=== PATIENT | female | born 1950 | race African-American/Black ===

== ENCOUNTER 2020-10-17 15:28 | Inpatient (IN) | payer MEDICARE, OTHER ==
[~2020-10-17] VITALS: Ht 157.5 cm; Wt 60.3 kg
--- NOTE | 2020-10-17 15:30 | NUR ---
DR. RICK CALLED REGARDING THIS PATIENT. IF PATIENT WERE TO BE ADMITTED TO PRESENT TO [facility] THE ATTENDING AND ACCEPTING.
--- NOTE | 2020-10-17 16:05 | NUR ---
ANA FROM BOARD AND CARE TO ER BED 6. AAOX3. NOT IN RESP DISTRESS. BED BOUND. BROUGHT IN FOR L ABDOMINAL PAIN STARTED TODAY. DENIES NAUSEA NOR VOMMITING. PT NOTED WITH FREEMAN AND NEPHROSTOMY. MD WAS AT THE BEDSIDE FOR EVAL. ORDERS RECEIVED, NOTED AND CARRIED OUT.
[2020-10-17 16:09] LABS: BASOPHILS # (AUTO) 0.2 K/uL (0.0-0.2); BASOPHILS % (AUTO) 0.6 % (0.0-2.0); BILIRUBIN,URINE Negative (NEGATIVE); COLOR,URINE YELLOW (YELLOW); EOSINOPHILS % (AUTO) 0.3 % (0.0-6.0); HEMATOCRIT 27 % (33-45); HEMOGLOBIN 8.7 g/dL (11.5-14.8); LEUKOCYTE ESTERASE ,URINE Negative (NEGATIVE); LYMPHOCYTES # (AUTO) 2.7 K/uL (0.8-4.8); LYMPHOCYTES % (AUTO) 10.5 % (20.0-44.0); MEAN CORPUSCULAR HGB CONC 32 g/dl (31.0-36.0); MEAN CORPUSCULAR VOLUME 87 fL (82-100); MONOCYTES # (AUTO) 1.1 K/uL (0.1-1.30); MONOCYTES % (AUTO) 4.3 % (2.0-12.0); NEUTROPHILS % (AUTO) 84.3 % (43.0-81.0); NITRITE, URINE Negative (NEGATIVE); PLATELET COUNT (AUTO) 538 K/uL (150-450); PROTEIN,URINE >=300 mg/dl (NEGATIVE); RED BLOOD CELL COUNT(AUTO) 3.14 MIL/uL (4.0-5.2); UGLUCOSE Negative (NEGATIVE); UROBILINOGEN,URINE 0.2 EU/dL (0.2); WHITE BLOOD COUNT (AUTO) 26.1 K/uL (4.3-11.0)
[2020-10-17 16:35] LABS: ALANINE AMINOTRANSFERASE 8 U/L (12-78); ALBUMIN 1.6 g/dL (3.4-5.0); ALKALINE PHOSPHATASE 171 U/L (46-116); ASPARTATE AMINOTRANSFERASE 21 U/L (15-37); BILIRUBIN,DIRECT 0.2 mg/dL (0.0-0.2); BILIRUBIN,TOTAL 0.5 mg/dL (0.2-1.0); CARBON DIOXIDE 18 mmol/L (21-32); CHLORIDE 106 mmol/L (98-107); CREATININE 1.2 mg/dL (0.6-1.3); GLUCOSE 72 mg/dL (74-106); SODIUM SERUM 138 mmol/L (136-145); TOTAL PROTEIN, SERUM 7.6 g/dL (6.4-8.2); UREA NITROGEN, BLOOD 24 mg/dL (7-18)
[2020-10-17 16:37] LABS: POTASSIUM 1.9 mmol/L (3.5-5.1)
[2020-10-17 16:38] LABS: BACTERIA,URINE Few /HPF (None Seen); SQUAMOUS EPITHELIAL CELL,UR Few /HPF (None Seen); WBC,URINE 0-2 /HPF (0-3)
[2020-10-17] MEDS ORDERED: IV PREMIX 0.45% NS + KCL 1,000 ML IV ONE (17:00)
--- NOTE | 2020-10-17 17:12 | NUR ---
CALLED NURSING SUP FOR TELE BED.
[2020-10-17] MEDS ORDERED: PIPERACILLIN /TAZOBACTAM 3.375 G in IV D5W 50 ML IV ONE (18:30)
[2020-10-17] MEDS ORDERED: AZTREONAM 1 G in IV NS 0.9% 100 ML IV ONE (18:30)
[2020-10-17] MEDS ORDERED: Magnesium 1GM/D5W 100ML PREMIX PIGGYBACK IV ONE (18:30)
[2020-10-17] MEDS ORDERED: OLANZAPINE 10 MG VIAL IM ONE ×2 (18:33→19:00)
[2020-10-17] MEDS ORDERED: PIPERACILLIN /TAZOBACTAM 3.375 G VIAL IV ONE (19:07)
[2020-10-17] MEDS ORDERED: Magnesium 1GM/D5W 100ML PREMIX 200 ML IV ONE (19:07)
[2020-10-17] MEDS ORDERED: CEFEPIME 1 GM in IV D5W 50 ML IV ONE (19:30)
--- NOTE | 2020-10-17 19:31 | NUR ---
LALITA SANCHEZ/JG [phone]
--- NOTE | 2020-10-17 20:59 | NUR ---
REPORT GIVEN TO BURAK SOSA FOR MAY
[2020-10-17 21:45] VITALS: BP 150/87
--- NOTE | 2020-10-17 21:45 | NUR ---
RN NOTE RECEIVED PATIENT FROM ER VIA FELIPE ACCOMPANIED BY ASHLEY SUMNER AND 1 ER STAFF AND TRANSFERRED TO BED VIA 2 PERSON ASSIST. PT IS AO X 2, IN NO SIGN OF ACUTE DISTRESS, RESPIRATIONS EVEN AND UNLABORED, SATURATION AT 98% ON ROOM AIR. COMPREHENSIVE PHYSICAL ASSESSMENT AND PATIENT CARE DONE. NOTED SCAR AT ABDOMEN AND SACRUM, AND RASH AT THE LEFT HIP. NOTED IV LINE AT LFA 20G, PATENT AND FLUSHING WELL, NO S/S OF INFECTION OR INFILTRATION, WITH IV FLUID OF 1/2 NS + 20 MEQ KCL INFUSING AT 100 ML/HR. NOTED SEVERE WEAKNESS ON BUE AND BLE. SAFETY MEASURES AND ISOLATION PRECAUTION IN PLACE, CALL LIGHT WITHIN REACH OF PATIENT, BED ON LOWEST POSITION, SIDE RAILS UP. WILL CONTINUE MONITOR AND ASSESS THROUGHOUT THE SHIFT. WILL CARRY OUT MD ORDERS ACCORDINGLY. CONTAINER SHOP WELDER MADE AWARE.
--- NOTE | 2020-10-17 21:51 | NUR ---
PT TRANSPORTED TO UNIT ON [facility] WITH EMT AND RN AT BEDSIDE W. ACLS PROTOCOL. NAD NOTED DURING TRANSPORT.
[2020-10-17] MEDS ORDERED: ONDANSETRON HCL/PF 4 MG/2 ML VIAL IV PRN (22:00)
[2020-10-17] MEDS ORDERED: ACETAMINOPHEN 650 MG/SUPP.RECT RC PRN (22:00)
--- NOTE | 2020-10-17 22:30 | NUR ---
RN NOTE NOTED ORDER FOR D5 NS + 30 MEQ KCL, NURSING LINUX ADMINISTRATOR WAS ADVISED, STATED ONLY D5 1/2 NS + 20 KCL, OR 1/2 NS + [address] RICK WAS NOTIFIED, RECEIVED ORDER TO CHANGE D5 NS + 30 MEQ KCL TO 1/2 NS + 20 MEQ KCL, AND KCL PO 40 MEQ ONCE, REPEAT IN 1 HR, TOTAL [address] ARTS ROAD MANAGER AWARE.
[2020-10-17] MEDS: PANTOPRAZOLE 40 MG VIAL IV SCH (22:38)
[2020-10-17] MEDS: LORAZEPAM INJ 2 MG/ML VIAL IV PRN (22:59)
[2020-10-17] MEDS ORDERED: POTASSIUM CHLORIDE 20 MEQ POWDER PACKET PO ONE (23:30)
--- NOTE | 2020-10-17 23:45 | NUR ---
RN NOTE TELEPHONE CALL TO PATIENT'S SON MARQUISE HOPSON AT [phone], STATED HE IS GIVING HIS CONSENT FOR HIS MOTHER TO UNDERGO CT GUIDED ABDOMINAL ABSCESS DRAINAGE. HE ALSO SAID HE WANT HIS MOM FULL CODE. Addendum: 10/18/20 at 0552 by SHEILA NICE RN VITA SUMNER WITNESS.
[2020-10-18] VITALS: BP_SYST 148; BP_SYST 150; BP_DIAS 64; BP_DIAS 87
[2020-10-18] MEDS ORDERED: POTASSIUM CHLORIDE 20 MEQ POWDER PACKET PO ONE (00:30)
[2020-10-18] MEDS ORDERED: PIPERACILLIN /TAZOBACTAM 3.375 G VIAL IV ONE ×2 (00:52→06:18)
[2020-10-18] MEDS: PIPERACILLIN /TAZOBACTAM 3.375 G in IV D5W 50 ML IV SCH ×4 (00:53→17:32)
[2020-10-18] MEDS ORDERED: IV PREMIX 0.45% NS + KCL 1,000 ML IV ONE (03:58)
[2020-10-18 04:00] VITALS: BP 146/77
[2020-10-18] MEDS: IV PREMIX 0.45% NS + KCL 1,000 ML IV PRN (04:04)
--- NOTE | 2020-10-18 06:00 | NUR ---
RN NOTE PATIENT REFUSED PO KCL, OFFERED MULTIPLE TIMES, BUT STILL REFUSES, IV 1/2 NS + KCL [address] RICK NOTIFIED, NO NEW ORDERS RECEIVED, AND STATED "WAIT FOR AM LABS". EDUCATIONAL AIDE AWARE.
[2020-10-18 07:12] LABS: BASOPHILS # (AUTO) 0.1 K/uL (0.0-0.2); BASOPHILS % (AUTO) 0.4 % (0.0-2.0); EOSINOPHILS % (AUTO) 0.3 % (0.0-6.0); HEMATOCRIT 26 % (33-45); HEMOGLOBIN 8.4 g/dL (11.5-14.8); LYMPHOCYTES # (AUTO) 2.2 K/uL (0.8-4.8); LYMPHOCYTES % (AUTO) 8.5 % (20.0-44.0); MEAN CORPUSCULAR HGB CONC 32 g/dl (31.0-36.0); MEAN CORPUSCULAR VOLUME 88 fL (82-100); MONOCYTES # (AUTO) 1.5 K/uL (0.1-1.30); MONOCYTES % (AUTO) 5.9 % (2.0-12.0); NEUTROPHILS # (AUTO) 21.7 K/uL (1.8-8.9); NEUTROPHILS % (AUTO) 84.9 % (43.0-81.0); PLATELET COUNT (AUTO) 504 K/uL (150-450); WHITE BLOOD COUNT (AUTO) 25.5 K/uL (4.3-11.0)
[2020-10-18 07:42] LABS: CALCIUM, SERUM 8.4 mg/dL (8.5-10.1); CREATININE 1.3 mg/dL (0.6-1.3); MAGNESIUM 2.2 mg/dL (1.8-2.4)
[2020-10-18 07:44] LABS: POTASSIUM 2.1 mmol/L (3.5-5.1)
[2020-10-18 08:00] VITALS: BP 143/71
--- NOTE | 2020-10-18 08:00 | NUR ---
rn telephone triage note patent in bed alert with confusion ,on ra no sob noted lt forearm , hl intact and flushed well . on ivf as ordered on tele monitor, st hr 103, with Ashley cath to gravity with yellow color urine rt nephrostomy in place but bag is leaking dr murphy notified, bed in lowest and locked position ,will monitor , dr murphy notified that k 2.1 with order 60 meq kcl ivpb , will f\u
[2020-10-18] MEDS: POTASSIUM CL. PREMIX PERIPHER. 50 ML IV SCH ×6 (09:24→15:31)
--- NOTE | 2020-10-18 09:44 | NUR ---
SERVICE INSPECTOR NOTE ST AT BEDSIDE WILL START PUREE DIET
[2020-10-18] MEDS ORDERED: NA P133E RC (10:08)
[2020-10-18] MEDS ORDERED: ASCO500C17 PO (10:08)
[2020-10-18] MEDS ORDERED: FAMO20TA8 PO (10:08)
[2020-10-18] MEDS ORDERED: ACET325T53 PO (10:08)
[2020-10-18] MEDS ORDERED: MEGE400O4 PO (10:08)
[2020-10-18] MEDS ORDERED: ENOX40DI SQ (10:08)
[2020-10-18] MEDS ORDERED: THIA100T74 PO (10:08)
[2020-10-18] MEDS ORDERED: SENN-175 PO (10:08)
[2020-10-18] MEDS ORDERED: INSU100V42 (10:08)
[2020-10-18] MEDS ORDERED: AMIN887L PO (10:08)
[2020-10-18] MEDS ORDERED: CALC-1104 PO (10:08)
[2020-10-18] MEDS ORDERED: IPRA3AMP22 IH (10:08)
[2020-10-18] MEDS ORDERED: ONDA4TAB11 PO (10:08)
[2020-10-18] MEDS ORDERED: CHOL200013 PO (10:08)
[2020-10-18] MEDS ORDERED: LACT1CAP25 PO (10:08)
[2020-10-18] MEDS ORDERED: BISA10SU11 RC (10:08)
--- NOTE | 2020-10-18 10:15 | NUR ---
POOL FINISHER NOTE DR RICK NOTIFIED THAT PATIENT CANT TOLERATE KCL IVPB PATIENT STATED ITS TOO BURNING , ORDERED MID LINE INSERTION AND INSERT NG TUBE INSERTION, WILL F\U Addendum: 10/18/20 at 1121 by KEVIN BRADEN RN PER DR MERLINE HAYES TO D\C CT GUIDED ABDOMINAL ABSCESS DRAINAGE
[2020-10-18] MEDS: LORAZEPAM INJ 2 MG/ML VIAL IV PRN ×2 (10:48→20:10)
--- NOTE | 2020-10-18 10:48 | NUR ---
STUD DRIVER NOTE VERY RESTLESS YELLING OUT , ATIVAN 0.25 MG IVP GIVEN ORDERED BP 143/71 SATURATION 99,WILL MONITOR
[2020-10-18 12:00] VITALS: BP 156/79
--- NOTE | 2020-10-18 12:00 | NUR ---
telecom sales consultant note mid line in room, inserted rt upper arm mid line as ordered
[2020-10-18] MEDS ORDERED: Potassium Chloride 10 MEQ, LIDOCAINE HCL/PF 1% 1 ML in IV NS 0.9% 50 ML IV SCH (13:00)
[2020-10-18] MEDS ORDERED: POTASSIUM CHLORIDE 10 MEQ/50 ML PREMIXED IVPB FOR PERIPHERAL LINE IV ONE (13:00)
[2020-10-18] MEDS ORDERED: POTASSIUM CL. PREMIX PERIPHER. 50 ML IV SCH ×2 (15:00→20:00)
--- NOTE | 2020-10-18 15:00 | NUR ---
TELE R N NOTE DR LAURENT SALES SUPPORT ASSISTANT AT BEDSIDE AWARE THAT PATIENT HAS RT SIDE NEPHROSTOMY WITH PIG TAIL HAS YELLOW CLOUDY URINE , AND FREEMAN CATH WITH YELLOW COLOR URINE STATED CHECK IT OUT ABOUT NEPHROSTOMY , WILL F\U
[2020-10-18 16:00] VITALS: BP 136/86
[2020-10-18] MEDS: Potassium Chloride 10 MEQ, LIDOCAINE HCL/PF 1% 1 ML in IV D5W 50 ML IV SCH ×4 (16:36→20:10)
[2020-10-18] MEDS: ENSURE ENLIVE 237 ML LIQUID (VANILLA) PO SCH (16:38)
--- NOTE | 2020-10-18 16:38 | NUR ---
telecom field technician note per pharmacy unable to administered kcl ivp stated that will make one last bag # 6
--- NOTE | 2020-10-18 17:08 | NUR ---
telesales supervisor note n g tube inserted as ordered per dr murphy ok to have dietary consultor for n g tube feeding also cheat x ray done, spoke with radiologist ok to use n g tube, will cont to monitor
--- NOTE | 2020-10-18 18:35 | NUR ---
SUPERVISOR CUTTING AND BONING NOTE ALL NEEDS ATTENDED , KEEP CLEAN DRY ,CON KCL INFUSION VIA MID LINE , N G TUBE LT NARE IN PLACE, AWAITING FOR DIETARY TO N G TUBE FEEDING ORDER , DINNER ATE 25%, RT SIDE BACK WITH NEPHROSTOMY WITH 50 ML YELLOW COLOR CLOUDY DRAINAGE NOTED BED IN LOWEST AND LOCKED POSITION , FREEMAN CA6H TO GRAVITY , WITH YELLOW COLOR URINE, WILL CONT TO MONITOR
[2020-10-18 20:00] VITALS: BP 132/77
--- NOTE | 2020-10-18 20:00 | NUR ---
MS RN OPENING NOTES Patient is awake A&Ox1 -confused. Patient is yelling out "HELP!" for non-urgent things like tea. R nephrostomy pigtail draining yellow cloudy output. NGT to the nose intact. Awaiting feeding orders. Potassium IV infusing well to AKOSUA midline, denies pain or discomfort to site. Will continue to monitor.
--- NOTE | 2020-10-18 20:10 | NUR ---
Patient screaming for non-urgent needs, confused, sundowning behavior, agitated. Given PRN Ativan as per MD order.
[2020-10-18] MEDS ORDERED: MEROPENEM 500 MG in IV NS 0.9% 50 ML IV SCH ×2 (21:00→21:30)
[2020-10-18] MEDS ORDERED: VANCOMYCIN 1 GM in IV D5W 250ml IV ONE (21:30)
[2020-10-18] MEDS ORDERED: MEROPENEM 500 MG VIAL IV ONE (21:40)
[2020-10-18] MEDS ORDERED: VANCOMYCIN 1 GM VIAL ONE (21:41)
--- NOTE | 2020-10-18 22:00 | NUR ---
Intraabdominal/ R kidney body fluid specimen obtained from pigtail. In biohazard fridge.
[2020-10-18] MEDS: PANTOPRAZOLE 40 MG VIAL IV SCH (22:26)
[2020-10-18] MEDS ORDERED: FLUCONAZOLE IN NS 100 ML IV ONE (22:51)
[2020-10-18 22:56] LABS: CALCIUM, SERUM 8.1 mg/dL (8.5-10.1); CREATININE 1.4 mg/dL (0.6-1.3); POTASSIUM 3.8 mmol/L (3.5-5.1)
[2020-10-18] MEDS: FLUCONAZOLE IN NS 100 MG in PREMIX 1 EA IV SCH (23:45)
[2020-10-19] VITALS: BP 158/99
[2020-10-19] MEDS: IV PREMIX 0.45% NS + KCL 1,000 ML IV PRN (02:09)
[2020-10-19] MEDS: LORAZEPAM INJ 2 MG/ML VIAL IV PRN ×2 (02:10→11:22)
--- NOTE | 2020-10-19 02:10 | NUR ---
Patient yelling out, but when asked what is wrong she responds "huh, nothing is wrong" uneasiness/unable to fall asleep. PRN Ativan given as per MD order.
[2020-10-19 04:00] VITALS: BP 157/88
--- NOTE | 2020-10-19 04:13 | NUR ---
Lab called with negative PCR COVID results.
[2020-10-19] MEDS: ACETAMINOPHEN 325 MG TABLET PO PRN ×2 (04:24→21:54)
--- NOTE | 2020-10-19 04:37 | NUR ---
Patient c/o discomfort to R flank PRN tylneol given.
--- NOTE | 2020-10-19 06:44 | NUR ---
STAFFING ANALYST CLOSING NOTES Patient has been awake and anxious for most of shift. A&Ox1. Radha works for about an hour and a half at a time to calm patient down and allow her to sleep. Slept approx 3 hours. VSS. Patient has been sinus tachy 110-120 on the monitor. bangura drained 300cc yellow clear urine. Output to nephrostomy tube is yellow and cloudy with no foul odor. Offered snacks but pt refused. NGT still in place to L nare. Potassium went up to 3.8 at 2230 labs on 10/18. Tolerating IVF and ABX well.
[2020-10-19 07:13] LABS: CALCIUM, SERUM 8.2 mg/dL (8.5-10.1); CREATININE 1.5 mg/dL (0.6-1.3); MAGNESIUM 1.8 mg/dL (1.8-2.4); PHOSPHORUS 1.1 mg/dL (2.5-4.9)
[2020-10-19 07:41] LABS: BASOPHILS # (AUTO) 0.1 K/uL (0.0-0.2); BASOPHILS % (AUTO) 0.3 % (0.0-2.0); EOSINOPHILS % (AUTO) 0.3 % (0.0-6.0); HEMATOCRIT 24 % (33-45); HEMOGLOBIN 7.4 g/dL (11.5-14.8); LYMPHOCYTES # (AUTO) 1.5 K/uL (0.8-4.8); LYMPHOCYTES % (AUTO) 4.3 % (20.0-44.0); MEAN CORPUSCULAR HGB CONC 31 g/dl (31.0-36.0); MEAN CORPUSCULAR VOLUME 91 fL (82-100); MONOCYTES # (AUTO) 1.7 K/uL (0.1-1.30); MONOCYTES % (AUTO) 4.8 % (2.0-12.0); NEUTROPHILS # (AUTO) 31.9 K/uL (1.8-8.9); NEUTROPHILS % (AUTO) 90.3 % (43.0-81.0); PLATELET COUNT (AUTO) 427 K/uL (150-450); RED BLOOD CELL COUNT(AUTO) 2.63 MIL/uL (4.0-5.2)
[2020-10-19 08:01] LABS: WHITE BLOOD COUNT (AUTO) 35.3 K/uL (4.3-11.0)
--- NOTE | 2020-10-19 08:05 | NUR ---
RN NOTES MD NOTIFIED OF WBC COUNT LOW AT 35.3 AWAITING ANY NEW ORDERS, NG - TUBE INTACT, F/C INTACT YELLOW CLEAR URINE NO FOUL ODOR NOTED AT THIS TIME, NEPROSTOMY TUBE INTACT DRAINING PROPERLY, PT SCREAMING YELLING CRYING OUT FOR HELP CONFUSED, HELPED TO CALM DOWN AND HOLD HAND FOR REASSURANCE , BED LOW TO FLOOR , WHEELS LOCKED AND ALL SAFETY MEASURES IN PLACE AT THIS TIME, CALL LIGHT IN REACH.
[2020-10-19] MEDS: ENSURE ENLIVE 237 ML LIQUID (VANILLA) PO SCH ×3 (08:08→17:00)
[2020-10-19 09:00] LABS: BAND % (MANUAL) 2 % (0.0-5.0); LYMPHOCYTES % (MANUAL) 2 % (16-48); MONOCYTES % (MANUAL) 7 % (0-11.0); NEUTROPHILS % (MANUAL) 89 (42-76)
[2020-10-19] MEDS ORDERED: NEUTRA PHOS 1 POWD.PACKET PO ONE (09:00)
[2020-10-19 09:39] VITALS: BP 122/74
[2020-10-19] MEDS: MEROPENEM 1 G in IV NS 0.9% 100 ML IV SCH ×2 (09:48→21:03)
[2020-10-19 13:06] VITALS: BP 132/99
[2020-10-19] MEDS ORDERED: ONDANSETRON 4 MG TAB.RAPDIS PO PRN (13:30)
[2020-10-19] MEDS ORDERED: BISACODYL SUPP (10 MG) 10 MG/SUPP.RECT SUPP.RECT RC PRN (13:30)
[2020-10-19] MEDS ORDERED: NA PHOS,M-B/NA PHOS,DI-BA 1 EA ENEMA RC PRN (13:30)
[2020-10-19] MEDS ORDERED: Sodium Phosphate 30 MMOL in IV NS 0.9% 250 ML IV SCH ×2 (13:30→16:30)
[2020-10-19] MEDS ORDERED: IV D5/0.45 NACL 1,000 ML IV ONE (16:00)
[2020-10-19] MEDS: FAMOTIDINE (20 MG) 20 MG TABLET PO SCH (16:27)
[2020-10-19] MEDS: MEGESTROL ACETATE SUSP 400 MG/10 ML UDC PO SCH (16:29)
[2020-10-19] MEDS: ENOXAPARIN SODIUM 40 MG/0.4 ML DISP.SYRIN SQ SCH (16:45)
[2020-10-19] MEDS: VANCOMYCIN 1 GM in IV D5W 250 ML IV SCH (16:58)
[2020-10-19] MEDS ORDERED: Sodium Bicarbonate 100 MEQ in IV D5 / 0.2% NACL 1,000 ML IV ONE (17:00)
[2020-10-19] MEDS: Magnesium 1GM/D5W 100ML PREMIX 100 ML IV SCH ×2 (17:15→17:17)
[2020-10-19 17:24] VITALS: BP 124/68
--- NOTE | 2020-10-19 19:15 | NUR ---
RN NOTES: RECEIVED AWAKE ON BED, SHE IS SHOUTING AND WHEN YOU TALK TO HER SHE WILL TALK IN NORMAL TONE,A/OX1 TO SELF ONLY, SHE RESPOND WHEN HER NAME WAS CALLED, ON TELE MONITOR ST-110-120, ON ROOM AIR SPO2-100%, WITH NGT ON THE LEFT NARES,ON PUREE DIET, IV ONGOING , AKOSUA MIDLINE, INTACT AND PATENT, SHE HAS RIGHT ABDOMEN NEPHROSTOMY TUBE, FREEMAN CATH IN SITE, ORIENTED TO UNIT AND STAFF, NO SIGN OF SOB OR RESPIRATORY DISTRESS. -FALL,SAFETY AND ASPIRATION PRECAUTION OBSERVED.
[2020-10-19 20:00] VITALS: BP 128/86
--- NOTE | 2020-10-19 20:30 | NUR ---
RN NOTES: -FAMILY VISITED AT BED SIDE, SHE WAS ABLE TO RECOGNIZE THEM. -REPOSITIONING DONE. -TRYING TO COMMUNICATE EVEN IN MUMBLING WORDS.
[2020-10-19] MEDS: FLUCONAZOLE IN NS 100 MG in PREMIX 1 EA IV SCH (21:03)
[2020-10-19] MEDS: PANTOPRAZOLE 40 MG VIAL IV SCH (21:53)
[2020-10-19] MEDS: SENNOSIDES 8.6 MG TABLET PO SCH (21:54)
--- NOTE | 2020-10-19 22:17 | NUR ---
RN NOTES: SHOUTING IN BETWEEN SHE HAS ON AND OFF PAIN, REQUEST FOR PAIN MEDICAITON, TYLENOL PRN FOR PAIN GIVEN, CRUSHED WITH APPLE SAUCE, TOLERATED.ASPIRATION PRECAUTION OBSERVED.
[2020-10-20] VITALS (10 sets, daily range): BP systolic 116–152; BP diastolic 57–88
--- NOTE | 2020-10-20 00:16 | NUR ---
RN NOTES: -- KEPT ON CLOSE WATCH, CHECK AT FREQUENT INTERVALS, SHE WILL SHOUT AND ONCE RN WILL COME,SHE WILL AND ASSESS HER IF SHE IS IN PAIN SHE SAID "NO", SHE WILL TRY TO VERBALIZED SHE WANT HER ARM OR FOOT MOVE AND HER ARM ELEVATED,SHE CAN COMMUNICATE IN SIMPLE WORDS. --NEEDS ATTENDED.
--- NOTE | 2020-10-20 00:18 | NUR ---
RN NOTES; -SHE WILL CLOSE HER EYES FOR FEW MINUTES THEN SHE WILL BE AWAKE AGAIN AND LOOK OR THE NURSE, SHE WILL CALL, NEEDS ATTENDED AND CHECK FREQUENTLY, SPO2-1005 NO RESPIRATORY DISTRESS NOTED, ABLE TO VERBALIZE HER NEEDS.
[2020-10-20] MEDS: LORAZEPAM INJ 2 MG/ML VIAL IV PRN ×3 (00:54→15:17)
--- NOTE | 2020-10-20 01:03 | NUR ---
RN NOTES: -AWAKE MOST OF THE TIME, NEEDS ATTENDED, REPOSITIONED. -STILL SHOUTING AND SCREAMING FOR NURSE, PRN FOR AGITATION ATIVAN GIVEN, BP-129/77 NM-114 SPO2-100%. -FALL AND SAFETY PRECAUTION OBSERVED, KEPT JULIO LIGHT WITHIN EASY REACH, ON CLOSE WATCH AT FREQUENT INTERVALS.
--- NOTE | 2020-10-20 03:40 | NUR ---
RN NOTES: AFTER ATIVAN SHE ONLY KEEP QUIET FOR FEW MINUTES THEN SHE WILL SHOUT AGAIN, NEEDS ATTENDED. -MORNING CARE DONE, SPONGE BATH RENDERED, AFTER CLEANING SHE CLOSE HER EYES FOR FEW MINUTES, THEN SHE STARTED SHOUTING AGAIN. -WHEN ASKED IF SHE IS IN PAIN, SHE SAID "No", THE MOMENT STAFF STEP OUT OF HER ROOM SHE WILL SHOUT "HELP HELP, HELP"AND WHEN STAFF COMES IN SHE WILL SAY SHE WANTS TO GET UP, EXPLAINED TO HER ITS STILL NIGHT TIME, ITS TIME TO REST AND SLEEP. -CHECK AT FREQUENT INTERVALS.
[2020-10-20] MEDS: ACETAMINOPHEN 325 MG TABLET PO PRN ×2 (04:19→09:42)
--- NOTE | 2020-10-20 04:30 | NUR ---
RN NOTES: -SHE VERBALIZED SHE HAS PAIN, ORAL PAIN MEDICATION GIVEN WITH APPLE SAUCE. TAKEN AND SWALLOWED, NEEDS ATTENDED. -NON PHARMACOLOGIC INTERVENTION RENDERED.
[2020-10-20 06:55] LABS: BASOPHILS # (AUTO) 0.1 K/uL (0.0-0.2); BASOPHILS % (AUTO) 0.2 % (0.0-2.0); HEMATOCRIT 23 % (33-45); LYMPHOCYTES # (AUTO) 2.1 K/uL (0.8-4.8); LYMPHOCYTES % (AUTO) 5.1 % (20.0-44.0); MEAN CORPUSCULAR HGB CONC 31 g/dl (31.0-36.0); MEAN CORPUSCULAR VOLUME 88 fL (82-100); MONOCYTES # (AUTO) 2.5 K/uL (0.1-1.30); MONOCYTES % (AUTO) 6.1 % (2.0-12.0); NEUTROPHILS % (AUTO) 88.6 % (43.0-81.0); PLATELET COUNT (AUTO) 445 K/uL (150-450); RED BLOOD CELL COUNT(AUTO) 2.61 MIL/uL (4.0-5.2)
[2020-10-20 06:57] LABS: CALCIUM, SERUM 8.2 mg/dL (8.5-10.1); CREATININE 1.5 mg/dL (0.6-1.3); MAGNESIUM 1.9 mg/dL (1.8-2.4); PHOSPHORUS 1.6 mg/dL (2.5-4.9); POTASSIUM 2.9 mmol/L (3.5-5.1)
--- NOTE | 2020-10-20 06:57 | NUR ---
RN NOTES: CALLS AND NEEDS ATTENDED, SHE WILL CLOSE HER EYES FOR FEW MINUTES THEN AWAKE AGAIN. KEPT ON CLOSE WATCH, NO PERIODS OF RESTLESSNESS, NO PERIODS OF TRYING TO PULL OUT HER TUBING, SHE ONLY SHOUT AND CALL FOR HELP. -FOR RD CONSULT THIS MORNING. -ENDORSED FOR CONTINUITY OF CARE.
[2020-10-20 07:19] LABS: WHITE BLOOD COUNT (AUTO) 40.6 K/uL (4.3-11.0)
[2020-10-20] MEDS: POTASSIUM PHOSPHATE MM 7.5 MMOL in IV NS 0.9% 100 ML IV SCH ×2 (07:39→11:01)
--- NOTE | 2020-10-20 08:00 | NUR ---
RN OPENING NOTE PT AWAKE IN BED. A/O X1 AND ANXIETY PRESENT. NO COMPLAINT OF PAIN OR NAUSEA. CURRENTLY ON RA WITH NO SOB OR RESPIRATORY DISTRESS PRESENT. ON HORSERADISH MAKER. ON BEDREST WITH DIAPER AND F/C PRESENT. F/C DRAINING WELL. FALL RISK WITH BED ALARM ON. ON PUREE DIETY. AKOSUA MIDLINE PRESENT AND FLUSHES WELL. SKIN PROBLEMS PRESENT AND WOUND CARE ORDERED. L WRIST EDEMA PRESENT. LABS AND ORDERS REVIEWED. SAFETY MEASURES IN PLACE. SIDE RAILS RAISED. BED LOWERED. CALL LIGHT WITHIN REACH. WILL CONTINUE TO MONITOR.
[2020-10-20] MEDS: FAMOTIDINE (20 MG) 20 MG TABLET PO SCH ×2 (08:08→17:26)
[2020-10-20] MEDS: MEGESTROL ACETATE SUSP 400 MG/10 ML UDC PO SCH ×2 (08:08→17:26)
[2020-10-20] MEDS: MEROPENEM 1 G in IV NS 0.9% 100 ML IV SCH ×2 (08:08→21:27)
[2020-10-20] MEDS: THIAMINE HCL 100 MG TABLET PO SCH (08:08)
[2020-10-20] MEDS: ENSURE ENLIVE 237 ML LIQUID (VANILLA) PO SCH ×3 (08:09→17:26)
[2020-10-20] MEDS: ENOXAPARIN SODIUM 40 MG/0.4 ML DISP.SYRIN SQ SCH (08:21)
[2020-10-20] MEDS: VANCOMYCIN 1 GM in IV D5W 250 ML IV SCH ×3 (10:00→15:28)
[2020-10-20] MEDS ORDERED: PANTOPRAZOLE 40 MG TABLET.DR PO SCH (10:00)
[2020-10-20 11:04] LABS: LYMPHOCYTES % (MANUAL) 4 % (16-48); MONOCYTES % (MANUAL) 4 % (0-11.0); NEUTROPHILS % (MANUAL) 92 (42-76)
[2020-10-20] MEDS: METRONIDAZOLE 500MG/ NS 100ML 500 MG in PREMIX 1 EA IV SCH ×2 (14:23→21:09)
--- NOTE | 2020-10-20 18:57 | NUR ---
RN CLOSING NOTE PT AWAKE IN BED. A/O X1 AND ANXIETY PRESENT. NO COMPLAINT OF PAIN OR NAUSEA. CURRENTLY ON RA WITH NO SOB OR RESPIRATORY DISTRESS PRESENT. ON PERCH MACHINE INSPECTOR. ON BEDREST WITH DIAPER AND F/C PRESENT. F/C DRAINING WELL. FALL RISK WITH BED ALARM ON. ON PUREE DIET. AKOSUA MIDLINE PRESENT AND FLUSHES WELL. SKIN PROBLEMS PRESENT AND WOUND CARE ORDERED. L WRIST EDEMA PRESENT. BLE EDEMA PRESENT. LABS AND ORDERS REVIEWED. ROUTINE MEDS GIVEN. SAFETY MEASURES IN PLACE. SIDE RAILS RAISED. BED LOWERED. CALL LIGHT WITHIN REACH. REPORT TO BE GIVEN TO NIGHT NURSE FOR MAY.
--- NOTE | 2020-10-20 19:45 | NUR ---
YARD SUPERVISOR COTTON GIN NOTES 1 UNIT PRBC TRANSFUSING WELL. VSS. AFEBRILE. NO S/SX OF TRANSFUSION RXN NOTED. WILL CONTINUE TO MONITOR.
[2020-10-20] MEDS: MORPHINE SULFATE INJ 2 MG/ML DISP.SYRIN IV PRN (20:19)
[2020-10-20] MEDS: FLUCONAZOLE IN NS 100 MG in PREMIX 1 EA IV SCH (20:19)
[2020-10-20] MEDS: PANTOPRAZOLE 40 MG TABLET.DR PO SCH (21:29)
[2020-10-20] MEDS: SENNOSIDES 8.6 MG TABLET PO SCH (21:29)
--- NOTE | 2020-10-20 22:00 | NUR ---
DIRECT SUPPORT PROFESSIONAL NOTES 1 UNIT PRBC COMPLETED. VSS. AFEBRILE. NO S/SX OF TRANSFUSION RXN NOTED. WILL CONTINUE TO MONITOR.
[2020-10-21] VITALS: BP 100/67
[2020-10-21] MEDS: MORPHINE SULFATE INJ 2 MG/ML DISP.SYRIN IV PRN (00:51)
[2020-10-21 04:00] VITALS: BP 121/67
[2020-10-21] MEDS: METRONIDAZOLE 500MG/ NS 100ML 500 MG in PREMIX 1 EA IV SCH ×3 (05:18→21:17)
--- NOTE | 2020-10-21 06:26 | NUR ---
REFINERY SUPERINTENDENT NOTES AWAKE & RESPONSIVE. NOT IN ANY DISTRESS. NO SOB NOTED. DENIES ANY PAIN OR DISCOMFORT AT THIS TIME. ON TELE ST @ 113 WITH ML PATENT & INTACT. AM CARE DONE. MONITORED ACCORDINGLY. CALL LIGHT WITHIN REACH. BED IN LOWEST POSITION. SR UP X 3 WITH BED ALARM ON FOR SAFETY. WILL ENDORSE TO NEXT SHIFT.
[2020-10-21 06:41] LABS: EOSINOPHILS % (AUTO) 0.1 % (0.0-6.0); HEMATOCRIT 26 % (33-45); HEMOGLOBIN 8.7 g/dL (11.5-14.8); LYMPHOCYTES % (AUTO) 6.4 % (20.0-44.0); MEAN CORPUSCULAR HGB CONC 33 g/dl (31.0-36.0); MEAN CORPUSCULAR VOLUME 87 fL (82-100); MONOCYTES % (AUTO) 6.3 % (2.0-12.0); NEUTROPHILS # (AUTO) 27.4 K/uL (1.8-8.9); NEUTROPHILS % (AUTO) 87.2 % (43.0-81.0); PLATELET COUNT (AUTO) 363 K/uL (150-450); RED BLOOD CELL COUNT(AUTO) 3.03 MIL/uL (4.0-5.2)
[2020-10-21 06:53] LABS: WHITE BLOOD COUNT (AUTO) 31.5 K/uL (4.3-11.0)
[2020-10-21 06:59] LABS: BILIRUBIN,TOTAL 1.2 mg/dL (0.2-1.0); CALCIUM, SERUM 8.1 mg/dL (8.5-10.1); CREATININE 1.6 mg/dL (0.6-1.3); MAGNESIUM 1.7 mg/dL (1.8-2.4); PHOSPHORUS 2.8 mg/dL (2.5-4.9); TOTAL PROTEIN, SERUM 6.4 g/dL (6.4-8.2)
--- NOTE | 2020-10-21 07:30 | NUR ---
NATURAL RESOURCES FACULTY MEMBER NOTE , AWAKE WITH CONFUSION, AGITATED BY YELLING OUT , ON TELE MONITOR ST 112, AT THIS TIME, ON RA N O SOB NOTED AT THIS TIME, WITH NG TUBE LT NARE IN PLACE , KEEP HOB ELEVATED AT ALL TIME, RT NEPHROSTOMY IN PLACE NO DRAIN NOTED, RT UPPER ARM MID LINE IN PLACE, N C\O PAIN AT THIS TIME, BED IN LOWEST AND LOCKED POSITION , WILL CONT TO MONITOR
[2020-10-21 08:00] VITALS: BP 122/72
[2020-10-21 08:24] LABS: ALBUMIN 1.3 g/dL (3.4-5.0); POTASSIUM 2.4 mmol/L (3.5-5.1)
[2020-10-21] MEDS: MEGESTROL ACETATE SUSP 400 MG/10 ML UDC PO SCH ×2 (08:26→16:20)
[2020-10-21] MEDS: FAMOTIDINE (20 MG) 20 MG TABLET PO SCH ×2 (08:26→16:20)
[2020-10-21] MEDS: THIAMINE HCL 100 MG TABLET PO SCH (08:26)
[2020-10-21] MEDS: MEROPENEM 1 G in IV NS 0.9% 100 ML IV SCH ×2 (08:26→22:17)
[2020-10-21] MEDS: ENSURE ENLIVE 237 ML LIQUID (VANILLA) PO SCH ×3 (08:27→16:19)
--- NOTE | 2020-10-21 09:00 | NUR ---
CIGARETTE FILTER INSPECTOR NOTE CHECKED PLACEMENT N G TUBE BY AUSCULTATION OF AIR
--- NOTE | 2020-10-21 09:07 | NUR ---
telephone order supervisor note called to dr murphy k 2.4 with order kcl 40meq x 3 doses will f\u
[2020-10-21] MEDS: POTASSIUM CHLORIDE 20 MEQ POWDER PACKET GT SCH ×3 (09:22→12:47)
[2020-10-21] MEDS: LORAZEPAM INJ 2 MG/ML VIAL IV PRN ×2 (09:58→21:12)
--- NOTE | 2020-10-21 10:08 | NUR ---
COOKY PACKER NOTE VERY AGITATED YELLING OUT , ATIVAN IVP PRN GIVEN BP 144/53 SATURATION 96%, WILL MONITOR
--- NOTE | 2020-10-21 10:13 | NUR ---
teletype adjuster note unable to give ensure patient refusing and start to cough
--- NOTE | 2020-10-21 10:41 | NUR ---
telegraphic typewriter operator note made a bm. keep clean dry, turn reposition , all needs attended
[2020-10-21 10:47] LABS: BAND % (MANUAL) 1 % (0.0-5.0); LYMPHOCYTES % (MANUAL) 6 % (16-48); MONOCYTES % (MANUAL) 1 % (0-11.0); NEUTROPHILS % (MANUAL) 92 (42-76)
--- NOTE | 2020-10-21 11:04 | NUR ---
TEMPLATE WORKER NOTE SEEN BY DR RICK NOTIFIED THAT PER DIETARY OK TO START N G TUBE JEVITY AT 20 ML PER HOUR ORDERED OK TO START FEEDING ALSO AWARE THAT BUN 25 CREAT 1.6 WBC 31.5 Addendum: 10/21/20 at 1256 by KEVIN BRADEN RN CONSENT FOR MRCP OBTAINED SON AT BEDSIDE
[2020-10-21] MEDS: JEVITY 1.2 CAL 1,000 ML BOTTLE GT PRN (11:49)
[2020-10-21 12:00] VITALS: BP 113/54
[2020-10-21 15:17] LABS: CALCIUM, SERUM 8.4 mg/dL (8.5-10.1); CREATININE 1.6 mg/dL (0.6-1.3); POTASSIUM 3.9 mmol/L (3.5-5.1)
--- NOTE | 2020-10-21 15:27 | NUR ---
ROAD SIGN INSTALLER NOTE UA COLLECTED ORDERED
--- NOTE | 2020-10-21 15:34 | NUR ---
tele n note called to son notified that ct guided us drainage abscess ok to have procedure
[2020-10-21] MEDS: VANCOMYCIN 1 GM in IV D5W 250 ML IV SCH (15:38)
--- NOTE | 2020-10-21 15:39 | NUR ---
director telehealth note per pharmacy ok to hold vancomycin level 27 at this time will f\u
[2020-10-21 16:00] VITALS: BP 91/67
[2020-10-21] MEDS: ACETAMINOPHEN 325 MG TABLET PO PRN (16:37)
--- NOTE | 2020-10-21 16:41 | NUR ---
DRILLING FOREMAN NOTE FAMILY AT BEDSIDE ,C\O ABDOMINAL PAIN TYLENOL ANG TUBE GIVEN , ALL NEEDS ATTENDED WILL MONITOR
--- NOTE | 2020-10-21 17:00 | NUR ---
TIN ROOFER NOTE SPOKE WITH SON , TELEPHONE CONSENT OBTAINED FOR US GUIDED DRAINAGE ABSCESS
[2020-10-21 17:11] LABS: CHLORIDE,URINE RANDOM 24 mmol/L (55-125); POTASSIUM RNDM,URINE 30 mmol/L (25-125); URINE SODIUM, RANDOM 9 mmol/l (40-220)
--- NOTE | 2020-10-21 18:30 | NUR ---
STOREHOUSE CLERK NOTE PATIENT IN BED AWAKE, WITH CONFUSION MOST OF TIME NONCOMPLIANT WITH CARE AND AGITATED , ON N G TUBE FEEDING AT LT NARE IN PLACE ,ON FEEDING KEEP HOB ELEVATED AT ALL TIME , NO SOB NOTED AT THIS TIME, WITH FREEMAN CATH TO GRAVITY AND RT SIDE NEPHROSTOMY IN PLACE , ALL NEEDS ATTENDED ,WILL MONITOR CLOSELY
[2020-10-21 20:00] VITALS: BP 108/60
--- NOTE | 2020-10-21 20:00 | NUR ---
RECEIVEDPT IN BED A/A/O X1, PT ON RA SATING ABOVE 95%, UNLABORED BREATHING. PT ON TELE MONITOR SHOWING SR IN 80S.
[2020-10-21] MEDS: FLUCONAZOLE IN NS 100 MG in PREMIX 1 EA IV SCH (20:16)
[2020-10-21] MEDS: SENNOSIDES 8.6 MG TABLET PO SCH (22:21)
[2020-10-21] MEDS: PANTOPRAZOLE 40 MG TABLET.DR PO SCH (22:21)
[2020-10-22] VITALS: BP 97/71
[2020-10-22 04:00] VITALS: BP 147/71
[2020-10-22] MEDS: METRONIDAZOLE 500MG/ NS 100ML 500 MG in PREMIX 1 EA IV SCH ×3 (05:27→21:29)
[2020-10-22 06:29] LABS: BASOPHILS # (AUTO) 0.1 K/uL (0.0-0.2); BASOPHILS % (AUTO) 0.3 % (0.0-2.0); EOSINOPHILS % (AUTO) 0.2 % (0.0-6.0); HEMATOCRIT 27 % (33-45); LYMPHOCYTES # (AUTO) 1.7 K/uL (0.8-4.8); LYMPHOCYTES % (AUTO) 6.8 % (20.0-44.0); MEAN CORPUSCULAR HGB CONC 33 g/dl (31.0-36.0); MEAN CORPUSCULAR VOLUME 87 fL (82-100); MONOCYTES # (AUTO) 1.6 K/uL (0.1-1.30); MONOCYTES % (AUTO) 6.4 % (2.0-12.0); NEUTROPHILS # (AUTO) 21.3 K/uL (1.8-8.9); NEUTROPHILS % (AUTO) 86.3 % (43.0-81.0); PLATELET COUNT (AUTO) 393 K/uL (150-450); RED BLOOD CELL COUNT(AUTO) 3.11 MIL/uL (4.0-5.2); WHITE BLOOD COUNT (AUTO) 24.7 K/uL (4.3-11.0)
[2020-10-22 07:15] LABS: CALCIUM, SERUM 8.4 mg/dL (8.5-10.1); CREATININE 1.5 mg/dL (0.6-1.3); POTASSIUM 3.6 mmol/L (3.5-5.1)
--- NOTE | 2020-10-22 07:36 | NUR ---
RN NOTE REPORT GIVEN TO ONCOMING SHIFT FOR MAY.
--- NOTE | 2020-10-22 07:42 | NUR ---
MS RN OPENING NOTE PATIENT IS IN BED RESTING. PATIENT IS IN NO ACUTE DISTRESS. PATIENT IS ON ROOM AIR SATURATING WELL. PATIENT HAS NG-TUBE IN PLACE. PATIENT IS A FALL RISK. SAFETY PRECAUTIONS ARE ON, BED IS LOCKED IN THE LOWEST POSITION WITH SIDE RAILS UP. CALL LIGHT WITHIN REACH, CONTINUE TO MONITOR CLOSELY.
[2020-10-22 08:00] VITALS: BP 113/62
[2020-10-22] MEDS ORDERED: VANCOMYCIN HCL 0.75 GM in IV D5W 250 ML IV SCH (08:00)
[2020-10-22] MEDS: ENSURE ENLIVE 237 ML LIQUID (VANILLA) PO SCH ×3 (09:00→17:00)
--- NOTE | 2020-10-22 09:25 | NUR ---
MS RN NOTE PATIENT IS UNABLE TO LAY FLAT, UNABLE TO PERFORM MRCP PROCEDURE, WILL NOTIFY DR. MERLINE TATUM
[2020-10-22] MEDS: THIAMINE HCL 100 MG TABLET PO SCH (09:48)
[2020-10-22] MEDS: MEGESTROL ACETATE SUSP 400 MG/10 ML UDC PO SCH ×2 (09:48→17:14)
[2020-10-22] MEDS: FAMOTIDINE (20 MG) 20 MG TABLET PO SCH ×2 (09:48→17:14)
[2020-10-22] MEDS: MEROPENEM 1 G in IV NS 0.9% 100 ML IV SCH ×2 (10:24→22:15)
--- NOTE | 2020-10-22 10:58 | NUR ---
MS RN NOTE PATIENT MORNING DOSE OF VANCOMYCIN WAS CANCELLED DUE TO VANCO LEVEL 24, WILL DRAW NEW VANCO LEVEL, AND RESCHEDULE VANCOMYCIN PER VANCO TROUGH
[2020-10-22 12:00] VITALS: BP 113/62
[2020-10-22] MEDS: LORAZEPAM INJ 2 MG/ML VIAL IV PRN (13:29)
--- NOTE | 2020-10-22 14:02 | NUR ---
MS RN NOTE PATIENT IS AGITATED ATIVAN PRN GIVEN
[2020-10-22 16:00] VITALS: BP 113/62
[2020-10-22] MEDS: Sodium Bicarbonate 50 MEQ in IV D5 / 0.2% NACL 1,000 ML IV SCH (18:14)
--- NOTE | 2020-10-22 18:54 | NUR ---
MS RN CLOSING NOTE PATIENT IS IN BED RESTING. PATIENT IS IN NO ACUTE DISTRESS. PATIENT IS ON ROOM AIR SATURATING WELL. PATIENT DID NOT HAVE MRCP PROCEDURE AND CR GUIDED ABSCESS DONE, PATIENT IS UNABLE TO LIE FLAT DURING THE PROCEDURES, DR. RICK IS AWARE. PATIENT HAS NG-TUBE IN PLACE. PATIENT IS A FALL RISK. SAFETY PRECAUTIONS ARE ON, BED IS LOCKED IN THE LOWEST POSITION WITH SIDE RAILS UP. CALL LIGHT WITHIN REACH, ENDORSE PATIENT TO METAL TESTER NURSE FOR MAY.
--- NOTE | 2020-10-22 19:45 | NUR ---
RN NOTE RECEIVED PT IN BED, ALERT CONFUSED. REDIRECTED TO REALITY. NO SIGNS OF DISTRESS. NGT IN PLACE, AUSCULTATED FOR POSITIVE PLACEMENT. PT ON NPO. ON IV D5 WITH NA BICARB RUNNING AT 75 ML/HR. MIDLINE PATENT AND INTACT. PT WITH R SIDE PIGTAIL DRAINAGE. WITH FREEMAN DRAINING URINE BY GRAVITY. ALL SAFETY MEASURES IN PLACE. WILL CONTINUE TO MONITOR.
[2020-10-22 20:00] VITALS: BP 138/81
[2020-10-22] MEDS: FLUCONAZOLE IN NS 100 MG in PREMIX 1 EA IV SCH (20:41)
[2020-10-22] MEDS: VANCOMYCIN HCL 0.75 GM in IV D5W 250 ML IV SCH (22:15)
[2020-10-22] MEDS: SENNOSIDES 8.6 MG TABLET PO SCH (22:16)
[2020-10-22] MEDS: PANTOPRAZOLE 40 MG TABLET.DR PO SCH (22:16)
[2020-10-23] VITALS: BP 143/98
[2020-10-23 04:00] VITALS: BP 131/75
[2020-10-23] MEDS: METRONIDAZOLE 500MG/ NS 100ML 500 MG in PREMIX 1 EA IV SCH ×4 (05:28→22:03)
--- NOTE | 2020-10-23 07:02 | NUR ---
RN NOTE NO SIGNIFICANT CHANGES NOTED FROM PT. NO SIGNS OF DISTRESS. REMAIN ON NPO. CONTINUE ON FLUIDS. ALL DUE ATBS GIVEN ORDERED. NO SIGNS OF PAIN OR DISCOMFORT NOTED. REPOSITIONED Q2H. WILL ENDORSE TO NEXT SHIFT NURSE FOR MAY.
[2020-10-23 07:09] LABS: BASOPHILS # (AUTO) 0.1 K/uL (0.0-0.2); BASOPHILS % (AUTO) 0.7 % (0.0-2.0); EOSINOPHILS % (AUTO) 0.9 % (0.0-6.0); HEMATOCRIT 28 % (33-45); HEMOGLOBIN 9.1 g/dL (11.5-14.8); LYMPHOCYTES # (AUTO) 2.3 K/uL (0.8-4.8); LYMPHOCYTES % (AUTO) 14.7 % (20.0-44.0); MEAN CORPUSCULAR HGB CONC 33 g/dl (31.0-36.0); MEAN CORPUSCULAR VOLUME 87 fL (82-100); MONOCYTES # (AUTO) 1.2 K/uL (0.1-1.30); MONOCYTES % (AUTO) 7.9 % (2.0-12.0); NEUTROPHILS # (AUTO) 11.9 K/uL (1.8-8.9); NEUTROPHILS % (AUTO) 75.8 % (43.0-81.0); PLATELET COUNT (AUTO) 389 K/uL (150-450); RED BLOOD CELL COUNT(AUTO) 3.18 MIL/uL (4.0-5.2); WHITE BLOOD COUNT (AUTO) 15.7 K/uL (4.3-11.0)
--- NOTE | 2020-10-23 07:30 | NUR ---
RN OPENING NOTE PT LAYING IN BED SEMIFOWLERS BREATHING RA SPO2 98%, NO S/S OF RESP DISTRESS OR SOB. PT A/Ox1, VERY CONFUSED AND ANXIOUS SCREAMING IN BED. PT DENIES PAIN AT THIS TIME. PT HAS AKOSUA MIDLINE INFUSING SODIUM BICARB 50 MEQ @ 75 ML/HR, FLUSHED, PATENT AND INTACT WITH NO S/S OF INFECTION/INFILTRATION. PT HAS LT NARE NGT IN PLACE, CURRENTLY NPO FOR MRCP AND CT GUIDED DRAINAGE, AUSCULTATED FOR POSITIVE PLACEMENT. PT RT FLANK PIGTAIL DRAINING CURRENTLY. PT SACRAL SCAR NOTED. ALL PT SAFETY PRECAUTIONS IN PLACE. WILL CONT TO MONITOR
[2020-10-23 07:43] LABS: CALCIUM, SERUM 8.4 mg/dL (8.5-10.1); CREATININE 1.4 mg/dL (0.6-1.3)
[2020-10-23 08:00] VITALS: BP 165/87
[2020-10-23] MEDS: Sodium Bicarbonate 50 MEQ in IV D5 / 0.2% NACL 1,000 ML IV SCH ×2 (08:08→21:02)
[2020-10-23 08:10] LABS: POTASSIUM 2.7 mmol/L (3.5-5.1)
[2020-10-23] MEDS: THIAMINE HCL 100 MG TABLET PO SCH (09:00)
[2020-10-23] MEDS: ENSURE ENLIVE 237 ML LIQUID (VANILLA) PO SCH ×3 (09:00→18:31)
[2020-10-23] MEDS: FAMOTIDINE (20 MG) 20 MG TABLET PO SCH ×2 (09:00→18:31)
[2020-10-23] MEDS: MEGESTROL ACETATE SUSP 400 MG/10 ML UDC PO SCH ×2 (09:00→18:31)
[2020-10-23] MEDS: MEROPENEM 1 G in IV NS 0.9% 100 ML IV SCH ×2 (09:12→23:04)
[2020-10-23] MEDS: LORAZEPAM INJ 2 MG/ML VIAL IV PRN ×3 (09:12→22:20)
--- NOTE | 2020-10-23 13:30 | NUR ---
RN NOTE DR RICK AWARE OF PT K+ OF 2.7
[2020-10-23] MEDS ORDERED: IOHEXOL-300 100 ML VIAL IV ONE (13:44)
[2020-10-23] MEDS ORDERED: CT SWABBABLE VALVE TRANS SET 1 EA INFUS.SET MC ONE (13:44)
[2020-10-23] MEDS ORDERED: POTASSIUM CHLORIDE 10 MEQ/50 ML PREMIXED IVPB FOR PERIPHERAL LINE IV ONE (14:00)
[2020-10-23] MEDS: POTASSIUM CL. PREMIX PERIPHER. 50 ML IV SCH ×4 (14:30→19:53)
[2020-10-23] MEDS ORDERED: POTASSIUM CHLORIDE 20 MEQ TAB.PRT.SR PO ONE (15:00)
[2020-10-23] MEDS: MORPHINE SULFATE INJ 2 MG/ML DISP.SYRIN IV PRN (15:49)
[2020-10-23 16:00] VITALS: BP 162/94
--- NOTE | 2020-10-23 19:00 | NUR ---
RN CLOSING NOTE PT AGITATED THROUGHOUT SHIFT. PT CONFUSED. PT DUE FOR CT GUIDED DRAINAGE TOMORROW, CONSENTS SIGNED. PT IN STABLE CONDITION. PT K+ OF 2.7, KDUR 40 MEQ GIVEN VIA NGT AND 30/40 MEQ GIVEN DURING MY SHIFT, 4TH OF 4 BAGS (REMAINING 10 MEQ) KCL GIVEN TO PRODUCT DESIGN SPECIALIST RN TO ADMIN. ALL PT SAFETY PRECAUTION IN PLACE, MAY ENDORSED TO PRODUCT DESIGN SPECIALIST RN
--- NOTE | 2020-10-23 19:30 | NUR ---
RN NOTE RECEIVED PATIENT IN BED. A/OX1, VERY CONFUSED. TOLERATING ROOM AIR. RESPIRATIONS ARE EVEN AND UNLABORED. NO S/S SOB NOTED. NO C/O PAIN AT THIS TIME. IN NO APPARENT DISTRESS. IV ACCESS IN AKOSUA MIDLINE RUNNING BICARB @75 AND CURRENTLY RUNNING K@50ML/HR. LEFT NARE WITH NGT, CLAMPED, NO RESIDUAL. RIGHT SIDE Addendum: 10/23/20 at 2040 by SIRENA STROUD RN CONTINUATION OF NOTE... RIGHT SIDE PIGTAIL DRAIN PRESENT, FREEMAN CATHETER PRESENT, DRAINING TO GRAVITY, URINE IS YELLOW. BED IS LOW AND LOCKED, HOB ELEVATED IN HIGH FOWLERS, SIDE RAILS UP X3, CALL LIGHT WITHIN REACH, WILL CONTINUE TO MONITOR THROUGHOUT SHIFT.
[2020-10-23 20:00] VITALS: BP_SYST 143; BP_DIAS 86; BP_DIAS 90
[2020-10-23] MEDS: FLUCONAZOLE IN NS 100 MG in PREMIX 1 EA IV SCH (21:02)
[2020-10-23] MEDS: SENNOSIDES 8.6 MG TABLET PO SCH (22:03)
[2020-10-23] MEDS: PANTOPRAZOLE 40 MG TABLET.DR PO SCH (22:03)
[2020-10-24 04:00] VITALS: BP 142/85
[2020-10-24] MEDS: METRONIDAZOLE 500MG/ NS 100ML 500 MG in PREMIX 1 EA IV SCH ×3 (05:17→20:04)
[2020-10-24 06:41] LABS: BASOPHILS # (AUTO) 0.1 K/uL (0.0-0.2); BASOPHILS % (AUTO) 1.1 % (0.0-2.0); EOSINOPHILS % (AUTO) 1.4 % (0.0-6.0); HEMATOCRIT 28 % (33-45); HEMOGLOBIN 9.4 g/dL (11.5-14.8); LYMPHOCYTES # (AUTO) 2.5 K/uL (0.8-4.8); LYMPHOCYTES % (AUTO) 24.3 % (20.0-44.0); MEAN CORPUSCULAR HGB CONC 33 g/dl (31.0-36.0); MEAN CORPUSCULAR VOLUME 88 fL (82-100); MONOCYTES # (AUTO) 1.2 K/uL (0.1-1.30); MONOCYTES % (AUTO) 11.6 % (2.0-12.0); NEUTROPHILS # (AUTO) 6.3 K/uL (1.8-8.9); NEUTROPHILS % (AUTO) 61.6 % (43.0-81.0); PLATELET COUNT (AUTO) 386 K/uL (150-450); RED BLOOD CELL COUNT(AUTO) 3.23 MIL/uL (4.0-5.2); WHITE BLOOD COUNT (AUTO) 10.3 K/uL (4.3-11.0)
--- NOTE | 2020-10-24 07:24 | NUR ---
RN NOTE PATIENT RESTING IN BED. A/OX1, VERY CONFUSED. REMAINS TOLERATING ROOM AIR. NO RESP DISTRESS. NO DISTRESS. IV ACCESS MAINTAINED IN AKOSUA MIDLINE RUNNING BICARB @75. LEFT NARE WITH NGT, CLAMPED. RIGHT SIDE PIGTAIL DRAINED 250ML YELLOW FLUID WITH SEDIMENTS. ATIVAN GIVEN DURING SHIFT FOR AGITATION PATIENT HAS INTERMITTENT SLEEP/ DISRUPTED SLEEP. FREEMAN CATHETER OUTPUT 650ML, YELLOW URINE. BED REMAINS LOW AND LOCKED, HOB ELEVATED IN HIGH FOWLERS, SIDE RAILS UP X3, CALL LIGHT WITHIN REACH, WILL ENDORSE TO ONCOMING SHIFT.
[2020-10-24 07:36] LABS: CALCIUM, SERUM 7.9 mg/dL (8.5-10.1); CREATININE 1.3 mg/dL (0.6-1.3); MAGNESIUM 1.4 mg/dL (1.8-2.4); POTASSIUM 3.1 mmol/L (3.5-5.1)
--- NOTE | 2020-10-24 08:00 | NUR ---
MS/RN OPENING NOTE RECEIVED PATIENT RESTING IN BED. A/OX1, VERY CONFUSED. REMAINS TOLERATING ROOM AIR. NO RESP DISTRESS. NO DISTRESS. IV ACCESS MAINTAINED IN AKOSUA MIDLINE RUNNING BICARB @75 ML/HR. LEFT NARE WITH NGT, CLAMPED. RIGHT SIDE PIGTAIL DRAINING MINIMAL YELLOW FLUID WITH SEDIMENTS. WITH FREEMAN CATHETER IN PLACED DRAINING TO A YELLOW URINE. BED LOW AND LOCKED, HOB ELEVATED IN HIGH FOWLERS, SIDE RAILS UP X3, CALL LIGHT WITHIN REACH, WILL CONTINUE TO MONNITOR PATIENT
[2020-10-24 08:38] VITALS: BP 145/91
[2020-10-24] MEDS: FAMOTIDINE (20 MG) 20 MG TABLET PO SCH ×3 (09:08→17:00)
[2020-10-24] MEDS: MEGESTROL ACETATE SUSP 400 MG/10 ML UDC PO SCH ×3 (09:08→17:00)
[2020-10-24] MEDS: THIAMINE HCL 100 MG TABLET PO SCH (09:08)
[2020-10-24] MEDS: MEROPENEM 1 G in IV NS 0.9% 100 ML IV SCH ×2 (09:08→23:17)
[2020-10-24] MEDS: LORAZEPAM INJ 2 MG/ML VIAL IV PRN ×2 (09:08→16:42)
[2020-10-24] MEDS: ENSURE ENLIVE 237 ML LIQUID (VANILLA) PO SCH ×4 (09:09→17:00)
--- NOTE | 2020-10-24 09:30 | NUR ---
MS/RN NOTES PATIENT GOT PICKED UP BY STAFF TO DO CT PERCUTANEOUS DRAINAGE ABSCESS. ALL CONSENTS SIGNED AND IN PLACED.
[2020-10-24] MEDS ORDERED: MIDAZOLAM HCL 5MG/ML VIAL 25 MG/5 ML VIAL IV ONE (10:00)
[2020-10-24] MEDS ORDERED: FENTANYL PF 250MCG/5ML AMPUL IV ONE (10:00)
[2020-10-24] MEDS ORDERED: NALOXONE PREFILLED SYRINGE 2 MG/2 ML SYRINGE IV ONE (10:00)
[2020-10-24] MEDS: Magnesium 1GM/D5W 100ML PREMIX 100 ML IV SCH ×2 (11:40→12:21)
[2020-10-24] MEDS: Sodium Bicarbonate 50 MEQ in IV D5 / 0.2% NACL 1,000 ML IV SCH (12:20)
[2020-10-24 12:25] VITALS: BP 145/91
[2020-10-24] MEDS ORDERED: Magnesium 1GM/D5W 100ML PREMIX 100 ML IV SCH (13:00)
[2020-10-24] MEDS: MORPHINE SULFATE INJ 2 MG/ML DISP.SYRIN IV PRN (13:57)
[2020-10-24 16:02] VITALS: BP 145/91
[2020-10-24] MEDS: POTASSIUM CHLORIDE 20 MEQ POWDER PACKET GT SCH ×2 (16:21→16:22)
--- NOTE | 2020-10-24 17:24 | NUR ---
MS/RN NOTES NG TUBE MED NOT GIVEN DUE TO NG TUBE CLOGGED. ATTEMPTED TO UNCLOG BUT NO AVAIL. REPORTED TO DR. RICK AND DR. MARIN (DURING HIS ROUNDS).
--- NOTE | 2020-10-24 17:26 | NUR ---
MS/RN NOTES PER DR. RICK- DISCONTINUE ENSURE AND MEGACE, CHANGE POTASSIUM CHLORIDE TO 20 KCL IV AND PEPCID 20MG IV. WILL CARRY OUT ORDER.
[2020-10-24] MEDS ORDERED: POTASSIUM CHLORIDE 10 MEQ/50 ML PREMIXED IVPB FOR PERIPHERAL LINE IV ONE (18:00)
[2020-10-24] MEDS: POTASSIUM CL. PREMIX PERIPHER. 50 ML IV SCH ×4 (18:40→22:10)
[2020-10-24] MEDS: FAMOTIDINE/PF INJ 20 MG/2 ML VIAL IV SCH (18:41)
--- NOTE | 2020-10-24 19:26 | NUR ---
MS/RN CLOSING NOTE PATIENT RESTING IN BED. A/OX1, VERY CONFUSED. REMAINS TOLERATING ROOM AIR. NO RESP DISTRESS. NO DISTRESS. IV ACCESS MAINTAINED IN AKOSUA MIDLINE RUNNING BICARB @75 ML/HR. LEFT NARE WITH NGT, CLAMPED. RIGHT SIDE PIGTAIL DRAINING MINIMAL YELLOW FLUID WITH SEDIMENTS. WITH FREEMAN CATHETER IN PLACED DRAINING TO A YELLOW URINE. BED LOW AND LOCKED, HOB ELEVATED IN HIGH FOWLERS, SIDE RAILS UP X3, CALL LIGHT WITHIN REACH, WILL ENDORSE TO THE NEXT SHIFT FOR CONTINUITY OF CARE
[2020-10-24 20:00] VITALS: BP 143/86
--- NOTE | 2020-10-24 20:00 | NUR ---
RN NOTE RECEIVED PT WITH VISITORS AT BEDSIDE. PT ALERT, CONFUSED. NO SIGNS OF DISTRESS NOTED, ON ROOM AIR. PT WITH R PIGTAIL ABSCESS DRAINAGE AND UROSTOMY. NO SIGNS OF PAIN NOR DISCOMFORT NOTED. PT ON NA BICARB RUNNING AND KCL RUNNING, MIDLINE PATENT AND INTACT, NO SIGNS OF INFILTRATION NOTED. FREEMAN IN PLACE DRAINING URINE BY GRAVITY. WILL CONTINUE TO MONITOR.
[2020-10-24] MEDS: FLUCONAZOLE IN NS 100 MG in PREMIX 1 EA IV SCH (21:07)
[2020-10-24] MEDS: VANCOMYCIN HCL 0.75 GM in IV D5W 250 ML IV SCH (21:48)
[2020-10-24] MEDS: SENNOSIDES 8.6 MG TABLET PO SCH (22:00)
--- NOTE | 2020-10-24 22:40 | NUR ---
BEDSIDE REPORT RECIEVED FROM AMELIE RN WILL CONT CARE. PER REPORT NGT NEEDS TO BE REPLACED IT HAS BEEN KNOWN TO BE CLOGGED SINCE THIS AFTERNOON. MERREM NOT HUNG D/T MANY ZBX BEINDG DUE AT SAME TIME TO HANG WHEN OLINDAN COMPLETES.
--- NOTE | 2020-10-24 23:25 | NUR ---
NGT TO LEFT NARE REMOVED. PT TOLERATED THE PROCEDURE WELL. Addendum: 10/24/20 at 0617 by RIP TIRADO RN UPON ASSESSMENT TUBE WAS INDEED CLOGGED. TUBE INTACT AFTER REMOVAL. NOTICIMYRIAMY BENT T INCHES ABOVE TUBE WHICH MAY HAVE BEEN REASON FOR CLOG .
[2020-10-25] MEDS: Sodium Bicarbonate 50 MEQ in IV D5 / 0.2% NACL 1,000 ML IV SCH ×2 (00:03→14:44)
[2020-10-25 04:00] VITALS: BP 150/90
[2020-10-25] MEDS: METRONIDAZOLE 500MG/ NS 100ML 500 MG in PREMIX 1 EA IV SCH ×3 (05:23→21:33)
--- NOTE | 2020-10-25 07:06 | NUR ---
RN OPENING NOTES RECEIVED PT AWAKE IN BED AT THIS TIME. PT AOX1-2. NO SOB NOTED, NO S/O OF ANY ACUTE DISTRESS NOTED, NO C/O PAIN AT THIS TIME. RESPIRATIONS EVEN AND UNLABORED. IV ACCESS NOTED IN AKOSUA MIDLINE IN PLACE, INTACT, PATENT AND FLUSHING WELL. FREEMAN CATHETER NOTED DRAINING TO GRAVITY CLEAR YELLOW URINE OUTPUT. PT NOTED WITH RIGHT PIGTAIL DRAIN WITH BROWN MILKY COLOR OUTPUT. ASPIRATION AND SAFETY PRECAUTIONS IN PLACE AND MAINTAINED AT ALL TIMES. BED IN LOWEST LOCKED POSITION, HOB ELEVATED, SIDE RAILS UP X2, CALL LIGHT AND TABLE WITHIN REACH. WILL CONTINUE TO MONITOR
--- NOTE | 2020-10-25 07:07 | NUR ---
PT NOTED WITH LEFT NARES NG-TUBE IN PLACE, VERIFIED PLACE. WILL CONTINUE TO MONITOR
--- NOTE | 2020-10-25 07:08 | NUR ---
PT NOTED WITH LEFT NARES NG-TUBE, 60CM AT TIP OF NOSE. VERIFIED PLACEMENT. WILL CONTINUE TO MONITOR
--- NOTE | 2020-10-25 07:28 | NUR ---
cxr taken last night. report hasnt been read. call made to radiology company [facility] PHONE: [phone]. spoke with apartment maintenance manager states she will get someone on it soon.
[2020-10-25 08:00] VITALS: BP 128/80
[2020-10-25] MEDS: THIAMINE HCL 100 MG TABLET PO SCH (08:40)
[2020-10-25] MEDS: FAMOTIDINE/PF INJ 20 MG/2 ML VIAL IV SCH (08:40)
[2020-10-25] MEDS: MEROPENEM 1 G in IV NS 0.9% 100 ML IV SCH (09:37)
[2020-10-25] MEDS ORDERED: JEVITY 1.2 CAL 1,000 ML BOTTLE GT PRN (12:00)
[2020-10-25 12:02] VITALS: BP 132/76
--- NOTE | 2020-10-25 12:25 | NUR ---
PER DR RICK, RESUME PATIENT ON NGT FEEDING. ORDERS READ BACK AND CARRIED OUT. WILL CONTINUE TO MONITOR
[2020-10-25] MEDS: JEVITY 1.2 CAL 1,000 ML BOTTLE GT PRN (13:37)
[2020-10-25 14:59] LABS: BASOPHILS # (AUTO) 0.1 K/uL (0.0-0.2); BASOPHILS % (AUTO) 1.1 % (0.0-2.0); EOSINOPHILS % (AUTO) 1.2 % (0.0-6.0); HEMATOCRIT 29 % (33-45); HEMOGLOBIN 9.5 g/dL (11.5-14.8); LYMPHOCYTES # (AUTO) 2.9 K/uL (0.8-4.8); LYMPHOCYTES % (AUTO) 29.7 % (20.0-44.0); MEAN CORPUSCULAR HGB CONC 33 g/dl (31.0-36.0); MEAN CORPUSCULAR VOLUME 88 fL (82-100); MONOCYTES # (AUTO) 1.3 K/uL (0.1-1.30); MONOCYTES % (AUTO) 13.5 % (2.0-12.0); NEUTROPHILS # (AUTO) 5.3 K/uL (1.8-8.9); NEUTROPHILS % (AUTO) 54.5 % (43.0-81.0); PLATELET COUNT (AUTO) 412 K/uL (150-450); RED BLOOD CELL COUNT(AUTO) 3.31 MIL/uL (4.0-5.2); WHITE BLOOD COUNT (AUTO) 9.8 K/uL (4.3-11.0)
[2020-10-25 15:58] LABS: CALCIUM, SERUM 7.9 mg/dL (8.5-10.1); CREATININE 1.1 mg/dL (0.6-1.3); POTASSIUM 3.4 mmol/L (3.5-5.1)
[2020-10-25 16:00] VITALS: BP 168/85
--- NOTE | 2020-10-25 19:50 | NUR ---
RN CLOSING NOTES PT AWAKE IN BED AT THIS TIME, ONGOING TRANSFUSION. PT REMAINS STABLE. PT KEPT CLEAN AND DRY. ALL CARE, NEEDS, MEDICATION, FREEMAN CARE AND ABD DRAINAGE CARE ADMINISTERED ANTICIPATED PER ORDER. PT REPOSITIONED Q2H AND PRN. SAFETY MEASURES IN PLACE AND MAINTAINED AT ALL TIMES. BED IN LOWEST LOCKED POSITION, HOB ELEVATED, CALL LIGHT AND TABLE WITHIN REACH. ENDORSED TO RAIL PROJECT ENGINEER NURSE FOR MAY
[2020-10-25 20:00] VITALS: BP 139/87
--- NOTE | 2020-10-25 20:00 | NUR ---
RN OPENING NOTE PATIENT IN ROOM AWAKE, A/O X 1, CONFUSED. PATIENT CURRENTLY ON RA, TOLERATING AT 96%. PATIENT HAS AN NGT FEEDING ON, 20 ML/HR. PATIENT HAS A FREEMAN DRAINING YELLOW URINE. [place] MIDLINE RUNNING BICARB AT 75 ML/HR. IV WA SLEAKING D/T IV TUBING, WILL CHANGE. PATIENT HS TWO PIGTAIL DRAINAGE, ONE DRAINS RED TINGED DRAINAGE AND THE OTHER DRAINS YELLOW THIN DRAINAGE. SAFETY MEASURES IN PLACE: HOB ELEVATED, SIDE RAILS UP, CALL LIGHT WITHIN REACH. WILL CONTINUE TO MONITOR.
[2020-10-25] MEDS: POTASSIUM CL. PREMIX PERIPHER. 50 ML IV SCH ×2 (20:02→21:32)
[2020-10-25] MEDS: FLUCONAZOLE IN NS 100 MG in PREMIX 1 EA IV SCH (21:32)
[2020-10-25 22:30] VITALS: BP 141/78
--- NOTE | 2020-10-25 22:42 | NUR ---
MEAT STRINGER NOTE PATIENT TRANSFERRED TO MED [facility]G 3W RM 304-1. PATIENT STABLE UPON TRANSFER.
--- NOTE | 2020-10-25 22:45 | NUR ---
RN NOTES RECEIVED PATIENT FROM MS-1, A/OX1-2, MIDLINE SITE WAS SLIGHTLY SWOLLEN, CHARGE NURSE MADE AWARE, WITH NGT , CHECKED THE PLACEMENT, F/C DRAINING CLEAR YELLOW URINE, NOT IN DISTRESS, NO PAIN NOTED, WILL CONTINUE TO MONITOR
--- NOTE | 2020-10-25 23:00 | NUR ---
RN NOTES noticed nephrostomy tube with 2 pig tails
[2020-10-26] VITALS: BP 141/78
--- NOTE | 2020-10-26 00:35 | NUR ---
RN NOTES MERREM IV ANTIBIOTICS WAS GIVEN LATE, FIXED APTIENT MIDLINE IF IT'S STILL OK TO USE
[2020-10-26] MEDS: MEROPENEM 1 G in IV NS 0.9% 100 ML IV SCH ×2 (00:47→08:41)
[2020-10-26] MEDS: SENNOSIDES 8.6 MG TABLET PO SCH ×2 (00:52→23:41)
[2020-10-26] MEDS: FAMOTIDINE/PF INJ 20 MG/2 ML VIAL IV SCH ×2 (00:52→08:39)
--- NOTE | 2020-10-26 03:45 | NUR ---
BURAK NOTES MERREM IV ANTIBIOTICS WAS GIVEN LATE, FIXED APTIENT MIDLINE IF IT'S STILL OK TO USE Addendum: 10/26/20 at 0346 by BELÉN PEDRO RN RIGHT TIME 0030
[2020-10-26] MEDS: METRONIDAZOLE 500MG/ NS 100ML 500 MG in PREMIX 1 EA IV SCH ×2 (04:35→12:41)
--- NOTE | 2020-10-26 07:00 | NUR ---
RN NOTES AWAKE, MORNING CARE RENDERED, PIGTAILS IN PLACE, NGTUBE IN PLACE, , NOT IN DISTRESS, DENIES PAIN, ENDORSED TO DAYSHIFT . PT. NEEDS ATTENDED
--- NOTE | 2020-10-26 07:35 | NUR ---
RN OPENING NOTE RECEIVED PATIENT AWAKE ALERT AND ORIENTED X1-2. PATIENT IN ROOM AIR SATURATING WELL. PATIENT IN NO APPARENT RESPIRATORY DISTRESS NOTED. NO SIGN AND SYMPTOM OF PAIN NOTED AT THIS TIME. NGT TUBE IN PLACED. WILL CONTINUE TO MONITOR.
[2020-10-26 08:00] VITALS: BP 142/72
[2020-10-26] MEDS: THIAMINE HCL 100 MG TABLET PO SCH (08:39)
--- NOTE | 2020-10-26 13:16 | NUR ---
RN NOTES DR. RICK ORDER FOR MIDLINE REINSERTION. NOTED AND CARRIED OUT.
[2020-10-26] MEDS: Sodium Bicarbonate 50 MEQ in IV D5 / 0.2% NACL 1,000 ML IV SCH (14:03)
[2020-10-26 16:00] VITALS: BP 146/79
--- NOTE | 2020-10-26 19:29 | NUR ---
MS/RN CLOSING NOTES PATIENT IS ON BED, AWAKE ALERT AND ORIENTED X1-2. PATIENT IN ROOM AIR SAO2 99% SATURATING WELL. PATIENT IN NO APPARENT RESPIRATORY DISTRESS NOTED. NO SIGN AND SYMPTOM OF PAIN NOTED AT THIS TIME. NGT TUBE IN PLACED WITH JEVITY AT 20ML/HR RUNNING WELL. CHECKED NGT PLACEMENT. SEEN AND EXAMINED BY MD WITH ORDERS MADE AND CARRIED OUT. ALL DUE MEDICATIONS WAS GIVEN. SAFETY PRECAUTIONS WAS IN PLACED. FREEMAN CATHETER DRAINING WELL WITH CLEAR YELLOW URINE . BED IN LOWEST POSITION AND LOCKED. SIDE RAILS UP X2. CALL LIGHT WITHIN REACH. PATIENT IS FOR REINSERTION OF MIDLINE. (SON) WANT UPDATE PLEASE REMIND MD. TOMORROW. PATIENT WAS PULLED OUT THE NGT, REINSERTED NGT AT LEFT NARES MALIAN 14, BILATERAL SOFT WRIST RESTRAIN AND CHEST XRAY STAT WAS ORDER, DR. RICK MADE AWARE. WILL ENDORSED TO DIRECTOR OF RECREATION THERAPY FOR MAY.
[2020-10-26 20:43] VITALS: BP 158/84
[2020-10-26] MEDS ORDERED: FAMOTIDINE (20 MG) 20 MG TABLET GT SCH (21:00)
--- NOTE | 2020-10-26 22:38 | NUR ---
MS RN NOTES STILL WAITING ON CXR RESULTS FOR NGT PLACEMENT. CALLED RADIOLOGY AND THEY SAID THEY WOULD MAKE IT STAT FOR RESULTS. CANNOT GIVE PEPCID 20 MG AND SENOKOT 17.2 MG UNTIL PLACEMENT IS CONFIRMED. WILL CONTINUE TO MONITOR
--- NOTE | 2020-10-26 22:40 | NUR ---
MS RN NOTES LEFT UPPER MIDLINE #18G INSERTED SUCCESSFUL BY ROLAND. WILL CONTINUE TO MONITOR
--- NOTE | 2020-10-26 23:00 | NUR ---
MS RN NOTES CALLED PHARMACY TO READJUST DOSAGE TIMES FOR PEPCID 20 MG, DIFLUCAN 100 MG, FLAGYL 500 MG, MERREM 1 GM, VANCO 0.75 MG AND SENOKOT. COULDN'T GIVE AT SCHEDULED TIME D/T WAITING FOR MIDLINE INSERTION AND NGT PLACEMENT CONFIRMATION RESULTS FOR CXR
[2020-10-26] MEDS ORDERED: MEROPENEM 1 G in IV NS 0.9% 100 ML IV ONE (23:30)
[2020-10-26] MEDS ORDERED: FLUCONAZOLE IN NS 100 MG in PREMIX 1 EA IV ONE (23:30)
[2020-10-26] MEDS: LORAZEPAM INJ 2 MG/ML VIAL IV PRN (23:41)
[2020-10-26] MEDS: FAMOTIDINE (20 MG) 20 MG TABLET GT SCH (23:41)
--- NOTE | 2020-10-27 | NUR ---
MS RN NOTES NEW LEFT UPPER ARM MIDLINE HAD NO BLOOD RETURN AND PT REFUSED PERIPHERAL LAB DRAW TWICE. NOTIFIED CHARGE NURSE MEGA. VANCO DOSE NOT ADMINISTERED BECAUSE WE WERE UNABLE TO GET VANCO TROUGH
[2020-10-27] MEDS: ACETAMINOPHEN 325 MG TABLET PO PRN (00:08)
[2020-10-27] MEDS: METRONIDAZOLE 500MG/ NS 100ML 500 MG in PREMIX 1 EA IV SCH ×4 (00:44→21:05)
[2020-10-27] MEDS ORDERED: FLUCONAZOLE IN NS 100 ML IV ONE (00:46)
--- NOTE | 2020-10-27 01:13 | NUR ---
MS RN NOTES COULDN'T SCAN FLAGYL 500 MG, MERREM 1 GM, AND DIFLUCAN 100 MG. BARCODES NOT WORKING POSSIBLE D/T TO ADJUSTED DOSAGE TIMES. ALL MEDICATIONS ADMINISTERED ORDERED. WILL CONTINUE TO ORDER
[2020-10-27 02:11] LABS: CALCIUM, SERUM 7.9 mg/dL (8.5-10.1); CREATININE 1.1 mg/dL (0.6-1.3); MAGNESIUM 1.8 mg/dL (1.8-2.4); POTASSIUM 3.6 mmol/L (3.5-5.1)
[2020-10-27] MEDS: MORPHINE SULFATE INJ 2 MG/ML DISP.SYRIN IV PRN (03:50)
--- NOTE | 2020-10-27 05:00 | NUR ---
MS RN NOTE FLAGYL 500 MG BAG NOT SCANNING CORRECTLY. MEDICATION GIVEN ORDERED. WILL CONTINUE TO MONITOR
[2020-10-27] MEDS: Sodium Bicarbonate 50 MEQ in IV D5 / 0.2% NACL 1,000 ML IV SCH ×2 (05:33→18:59)
--- NOTE | 2020-10-27 07:00 | NUR ---
MS RN NOTES PATIENT ALERT/ORIENTED X 1, CONFUSED, SLEPT INTERMITTENTLY, YELLING OUT LOUD INTERMITTENTLY THROUGHOUT SHIFT. PATIENT ON RESTRAINTS D/T PULLING OF LINES AND TUBES, MONITORED PT THROUGHOUT SHIFT, TURNED AND REPOSITIONED. LEFT UPPER ARM MIDLINE INTACT AND RUNNING SODIUM BICARBONATE @ 75 ML/HR. RIGHT UPPER ARM MIDLINE REMOVED D/T SWELLING, NO EXCESS BLEEDING NOTED. MEDICATIONS GIVEN ORDERED. PT NEEDS MET THROUGHOUT SHIFT. SAFETY AND ASPIRATION PRECAUTIONS IN PLACE, CALL LIGHT WITHIN REACH, BED LOCKED IN LOWEST POSITION, BED ALARM ON, HOB ELEVATED. WILL ENDORSE TO DAY SHIFT NURSE FOR CONTINUITY OF CARE
--- NOTE | 2020-10-27 07:54 | NUR ---
MS RN OPENING NOTE PATIENT IS IN BED RESTING. PATIENT IS IN NO ACUTE DISTRESS. PATIENT IS ON ROOM AIR SATURATING WELL. PATIENT IS ON RESTRAINS. PATIENT HAS NG-TUBE IN PLACE WITH FEEDING RUNNING. PATIENT IS A FALL RISK. SAFETY PRECAUTIONS ARE ON, BED IS LOCKED IN THE LOWEST POSITION WITH SIDE RAILS UP. CALL LIGHT WITHIN REACH, CONTINUE TO MONITOR CLOSELY.
[2020-10-27 08:00] VITALS: BP 121/78
[2020-10-27] MEDS: THIAMINE HCL 100 MG TABLET PO SCH (08:30)
[2020-10-27] MEDS: FAMOTIDINE (20 MG) 20 MG TABLET GT SCH ×2 (08:30→20:42)
[2020-10-27] MEDS ORDERED: VANCOMYCIN HCL 0.75 GM in IV D5W 250 ML IV SCH ×2 (09:00)
[2020-10-27] MEDS: MEROPENEM 1 G in IV NS 0.9% 100 ML IV SCH ×2 (11:24→21:04)
[2020-10-27] MEDS: JEVITY 1.2 CAL 1,000 ML BOTTLE GT PRN (13:31)
[2020-10-27 16:00] VITALS: BP 167/92
--- NOTE | 2020-10-27 18:44 | NUR ---
MS RN CLOSING NOTE PATIENT IS IN BED RESTING. PATIENT IS IN NO ACUTE DISTRESS. PATIENT IS ON ROOM AIR SATURATING WELL. PATIENT IS ON RESTRAINS. PATIENT HAS NG-TUBE IN PLACE WITH FEEDING RUNNING. PATIENT IS A FALL RISK. SAFETY PRECAUTIONS ARE ON, BED IS LOCKED IN THE LOWEST POSITION WITH SIDE RAILS UP. CALL LIGHT WITHIN REACH, ENDORSE PATIENT TO CORPORATE INVESTIGATOR NURSE FOR MAY.
--- NOTE | 2020-10-27 19:27 | NUR ---
MS RN OPENING PATIENT IN BED. A/OX1 TO NAME ONLY. CONFUSED, PATIENT KEPT ASKING "WHO'S GOING TO KILL ME TONIGHT, ARE YOU THE ONE" -- REORIENTED PATIENT. NO S/S OF APPARENT DISTRESS. NO C/O PAIN AT THIS TIME. PIGTAIL TUBE IN PLACE AND NEPHROSTOMY TUBE NOTED IN PLACE - DRESSING CLEAN, DRY, AND INTACT. FREEMAN CATHETER IN PLACE DRAINING DARK YELLOW URINE. NG TUBE IN L. NARE NOTED WITH FEEDING - JEVITY 1.2 RUNNING @ 35ML/HR. IV BICARB RUNNING @75 CC/HR. BILA. SOFT WRIST RESTRAINT IN PLACE. WILL CONT. TO MONITOR.
[2020-10-27 20:00] VITALS: BP 148/96
--- NOTE | 2020-10-27 20:08 | NUR ---
MS RN NOTES PATIENT SCREAMING WANTING THE RESTRAINTS OFF. TOOK OFF BILA. SOFT WRIST RESTRAINTS FOR VACATION. WILL MONITOR HOW PATIENT DOES WITHOUT IT.
[2020-10-27] MEDS ORDERED: FLUCONAZOLE IN NS 100 MG in PREMIX 1 EA IV SCH (21:00)
[2020-10-27] MEDS: SENNOSIDES 8.6 MG TABLET PO SCH (22:16)
--- NOTE | 2020-10-28 00:35 | NUR ---
MSRN HS CARE STARTED, HAD BM/ FREEMAN TO GRAVITY, NEPHROSTOMY TUBES X 2 DRAINING , REPEATEDLY ASKING FOR FOOD. FREQ REMINDED NOT ALLOWED YET TO HAVE ANYTHING ORAL AND WILL WAIT FOR THERAPIST TO DO TEST. FELT COMFORTABLE AFTER HS CARE. CLOSELY WATCHED.
[2020-10-28] MEDS: MORPHINE SULFATE INJ 2 MG/ML DISP.SYRIN IV PRN (02:27)
--- NOTE | 2020-10-28 02:27 | NUR ---
MS RN NOTES PATIENT CRYING OF PAIN. PATIENT REPORTS 8/10 PAIN ALL OVER HER BODY. GIVEN MORPHINE 0.5 ML. WILL REASSESS AND CONTINUE TO MONITOR.
[2020-10-28] MEDS: METRONIDAZOLE 500MG/ NS 100ML 500 MG in PREMIX 1 EA IV SCH ×3 (05:37→22:12)
--- NOTE | 2020-10-28 06:57 | NUR ---
MS RN CLOSING NOTES PATIENT IN BED WITH EYES CLOSED, EASY TO AROUSE. A/OX3. NO S/S OF APPARENT DISTRESS. NO C/O PAIN AT THIS TIME. IV BICARB RUNNING @ 75 CC/HR. NEPHROSTOMY TUBE OUTPUT OF 200ML. DRESSING CLEAN, DRY, INTACT. FREEMAN DRAINING DARK, YELLOW URINE WITH UO OF 350 ML. R. ARM NOTED TO BE SWELLING. NG TUBE JEVITY RUNNING 45 ML/HR -- TOLERATING. SAFETY KEPT IN PLACE THE WHOLE SHIFT. ALL NEEDS ATTENDED. ALL SCHED MEDS ADMINISTERED. WILL ENDORSE CARE TO AM SHIFT NURSE.
[2020-10-28 07:18] LABS: BASOPHILS # (AUTO) 0.1 K/uL (0.0-0.2); BASOPHILS % (AUTO) 0.8 % (0.0-2.0); EOSINOPHILS % (AUTO) 3.1 % (0.0-6.0); HEMATOCRIT 25 % (33-45); LYMPHOCYTES # (AUTO) 2.8 K/uL (0.8-4.8); LYMPHOCYTES % (AUTO) 27.3 % (20.0-44.0); MEAN CORPUSCULAR HGB CONC 32 g/dl (31.0-36.0); MEAN CORPUSCULAR VOLUME 90 fL (82-100); MONOCYTES % (AUTO) 9.7 % (2.0-12.0); NEUTROPHILS # (AUTO) 6.1 K/uL (1.8-8.9); NEUTROPHILS % (AUTO) 59.1 % (43.0-81.0); PLATELET COUNT (AUTO) 406 K/uL (150-450); RED BLOOD CELL COUNT(AUTO) 2.74 MIL/uL (4.0-5.2); WHITE BLOOD COUNT (AUTO) 10.3 K/uL (4.3-11.0)
[2020-10-28 08:00] VITALS: BP 143/87
[2020-10-28] MEDS: MEROPENEM 1 G in IV NS 0.9% 100 ML IV SCH ×2 (08:48→23:03)
[2020-10-28] MEDS: FAMOTIDINE (20 MG) 20 MG TABLET GT SCH ×2 (08:50→22:50)
[2020-10-28] MEDS: THIAMINE HCL 100 MG TABLET PO SCH (08:50)
[2020-10-28 09:29] LABS: ALANINE AMINOTRANSFERASE < 6 U/L (12-78); ALKALINE PHOSPHATASE 124 U/L (46-116); ASPARTATE AMINOTRANSFERASE 28 U/L (15-37); BILIRUBIN,TOTAL 0.3 mg/dL (0.2-1.0); CALCIUM, SERUM 7.4 mg/dL (8.5-10.1); CARBON DIOXIDE 21 mmol/L (21-32); CHLORIDE 111 mmol/L (98-107); GLUCOSE 95 mg/dL (74-106); MAGNESIUM 1.5 mg/dL (1.8-2.4); PHOSPHORUS 2.9 mg/dL (2.5-4.9); POTASSIUM 3.8 mmol/L (3.5-5.1); SODIUM SERUM 140 mmol/L (136-145); TOTAL PROTEIN, SERUM 5.7 g/dL (6.4-8.2); UREA NITROGEN, BLOOD 16 mg/dL (7-18)
[2020-10-28 09:46] LABS: ALBUMIN 1.2 g/dL (3.4-5.0)
--- NOTE | 2020-10-28 10:00 | NUR ---
MS/RN DR ZHOU MADE AWARE OF CRITICAL LABS(ALBUMIN 1.2)
[2020-10-28] MEDS: Magnesium 1GM/D5W 100ML PREMIX 100 ML IV SCH ×2 (12:19→13:36)
[2020-10-28 16:00] VITALS: BP 138/79
--- NOTE | 2020-10-28 19:40 | NUR ---
TELERN RECEIVED FULLY AWAKE, YELLING FOR FOOD. KEPT NPO REMINDED NEED SWALLOW RE-EVAL TOMORROW. LISTENS ONLY FOR SHORT PERIOD OF TIME. FREQ REMINDED. NGT FEEDINGS JEVITY AT 45 CC/HR. WITH LESS THAN 5CC RESIDUALS. MAINTAINE HOB AT 45 DEGREES TO PREVENT ASPIRATION. REPOSITIONED. BILATERAL SOFT WRIST RESTRAINTS TO PREVENT PATIENT FROM PULLING LINES AND NGT. TO CONTINUE.
[2020-10-28 20:00] VITALS: BP 152/84
[2020-10-28] MEDS: SENNOSIDES 8.6 MG TABLET PO SCH (22:51)
--- NOTE | 2020-10-29 00:45 | NUR ---
MSRN SLEEPING OF THIS TIME. PROVIDED QUIET ENVI. KEPT COMFORTABLE.
[2020-10-29] MEDS: MORPHINE SULFATE INJ 2 MG/ML DISP.SYRIN IV PRN (01:04)
--- NOTE | 2020-10-29 01:16 | NUR ---
MSRN C/O LEFT ARM PAIN MEDICATED WITH MORPHINE 1MG IVP GIVEN SLOWLY. KEPT LEFT ARM ELEVATED ON PILLOWS. REPOSITIONED FOR COMFORT.
[2020-10-29] MEDS: METRONIDAZOLE 500MG/ NS 100ML 500 MG in PREMIX 1 EA IV SCH ×3 (06:12→20:07)
--- NOTE | 2020-10-29 07:33 | NUR ---
MS RN OPENING NOTES PATIENT RECEIVED AWAKE IN BED IN NO ACUTE SIGNS OF DISTRESS. HOB ELEVATED. A/O X 2-3. VERBALLY RESPONSIVE, ASKING FOR FOOD, EXPLAINED THAT SHE CAN'T HAVE FOOD AT THE MOMENT UNTIL HE PASS SWALLOW EVALUATION, SAME MENTIONED THAT SHE'S RECEIVING FOOD VIA NG-TUBE AT THIS TIME. PT ON ROOM AIR, TOLERATING WELL, BREATHING EVEN AND UNLABORED. NGT IN PLACE TO LEFT NARE, FEEDING OF JEVITY 1.2 AT 45 ML/HR IN PROGRESS AND TOLERATING WELL. RIGHT SOFT RESTRAINTS IN PLACE, NO SKIN BREAKDOWN AT ARM WITH GOOD PERIPHERAL PULSE NOTED. ASPIRATION PRECAUTIONS MAINTAINED. FREEMAN DRAINING CLEAR YELLOW URINE VIA GRAVITY. PHAM MIDLINE INTACT, PATENT AND FLUSHES WELL. PATIENT HS TWO PIGTAIL DRAINAGE ON RIGHT SIDE OF BACK, ONE DRAINS RED TINGED DRAINAGE AND THE OTHER DRAINS YELLOW THIN DRAINAGE. SAFETY MEASURES IN PLACE: BED IN LOWEST LOCKED POSITION WITH SIDE RAILS UP X2, CALL LIGHT WITHIN REACH. WILL CONTINUE TO MONITOR.
[2020-10-29 08:00] VITALS: BP 137/91
[2020-10-29] MEDS: MEROPENEM 1 G in IV NS 0.9% 100 ML IV SCH ×2 (09:31→21:40)
[2020-10-29] MEDS: THIAMINE HCL 100 MG TABLET PO SCH (09:31)
[2020-10-29] MEDS: FAMOTIDINE (20 MG) 20 MG TABLET GT SCH ×2 (09:32→20:07)
[2020-10-29] MEDS: JEVITY 1.2 CAL 1,000 ML BOTTLE GT PRN (15:01)
--- NOTE | 2020-10-29 15:48 | NUR ---
RN NOTES PATIENT REFUSED BLOOD WORKS THIS MORNING AND AGRICULTURAL SERVICES DIRECTOR CAME ALSO THIS AFTERNOON TO TAKE BUT PT STILL REFUSED DESPITE ENCOURAGEMENT AND EXPLAINING IMPORTANCE OF IT. DR LIGHT MADE AWARE AND HE STATED "OK".
[2020-10-29] MEDS: LORAZEPAM INJ 2 MG/ML VIAL IV PRN (15:59)
[2020-10-29 16:00] VITALS: BP 146/76
--- NOTE | 2020-10-29 16:01 | NUR ---
RN NOTES PATIENT IS ANXIOUS, RESTLESS AND YELLING ALL THE TIME. PRN ATIVAN 0.5MG/0.25ML IVP ADMINISTERED AT 1559. WILL CONTINUE TO MONITOR.
--- NOTE | 2020-10-29 18:40 | NUR ---
MS RN CLOSING NOTES PATIENT IN BED AWAKE AT THIS TIME RESTING AT SEMI SPENCE'S POSITION. A/O X 2-3. ABLE TO MAKE NEEDS KNOWN WITH EPISODES OF CONFUSION AND YELLING OUT ON AND OFF NOTED. ON ROOM AIR, TOLERATING WELL WITH NO SOB NOTED DURING SHIFT. PHAM MIDLINE INTACT, PATENT AND FLUSHES WELL. NGT IN PLACE TO LEFT NARE, FEEDING OF JEVITY 1.2 AT 45 ML/HR IN PROGRESS AND TOLERATING WELL. ASPIRATION PRECAUTIONS MAINTAINED. RIGHT SOFT RESTRAINTS IN PLACE, GOOD PERIPHERAL PULSE NOTED ON RIGHT ARM. FREEMAN IN PLACE DRAINING CLEAR YELLOW URINE VIA GRAVITY, FREEMAN CARE DONE. PATIENT HAS TWO PIGTAIL DRAINAGE ON LOWER RIGHT SIDE OF BACK, ONE DRAINS RED TINGED DRAINAGE AND THE OTHER DRAINS YELLOW THIN COLORED DRAINAGE. PT TURNED AND REPOSITIONED Q 2HRS AND PRN. ALL NEEDS AND CARE ATTENDED WELL. SAFETY MEASURES IN PLACE: BED IN LOWEST LOCKED POSITION WITH SIDE RAILS UP X2, CALL LIGHT WITHIN REACH. WILL ENDORSE MAY TO MICROELECTRONICS ENGINEER NURSE.
--- NOTE | 2020-10-29 19:30 | NUR ---
MS RN NOTES PATIENT IN BED AWAKE AT THIS TIME RESTING AT SEMI SPENCE'S POSITION. A/O X 2-3. ABLE TO MAKE NEEDS KNOWN WITH EPISODES OF CONFUSION AND YELLING OUT ON AND OFF NOTED. ON ROOM AIR, TOLERATING WELL WITH NO SOB NOTED AT THIS TIME PHAM MIDLINE INTACT, PATENT AND FLUSHES WELL. NGT IN PLACE TO LEFT NARE, FEEDING OF JEVITY 1.2 AT 45 ML/HR IN PROGRESS AND TOLERATING WELL. ASPIRATION PRECAUTIONS MAINTAINED. RIGHT SOFT RESTRAINTS IN PLACE, GOOD PERIPHERAL PULSE NOTED ON RIGHT ARM. FREEMAN IN PLACE DRAINING CLEAR YELLOW URINE VIA GRAVITY. PATIENT HAS TWO PIGTAIL DRAINAGE ON LOWER RIGHT SIDE OF BACK, ONE DRAINS RED TINGED DRAINAGE AND THE OTHER DRAINS YELLOW THIN COLORED DRAINAGE. PT TURNED AND REPOSITIONED Q 2HRS AND PRN FOR COMFORT. ALL NEEDS AND CARE ATTENDED WELL. SAFETY MEASURES IN PLACE: BED IN LOWEST LOCKED POSITION WITH SIDE RAILS UP X2, CALL LIGHT WITHIN REACH. WILL CONTINUE TO MONITOR.
[2020-10-29 20:00] VITALS: BP 137/99
[2020-10-29] MEDS: SENNOSIDES 8.6 MG TABLET PO SCH (21:40)
[2020-10-29] MEDS: ACETAMINOPHEN 325 MG TABLET PO PRN (22:09)
[2020-10-30] MEDS: LORAZEPAM INJ 2 MG/ML VIAL IV PRN (02:16)
--- NOTE | 2020-10-30 02:16 | NUR ---
MS RN NOTES PT SCREAMING CONFUSED. DISTRACTION PROVIDED AND REORIENTATION PROVIDED PT STILL CONTINUES TO SCREAM AND IS VERY AGITATED PRN ATIVAN GIVEN. PT REASSESSED 15 MINS AFTER PT IN NO LONGER AGITATED. WILL CONTINUE TO MONITOR.
--- NOTE | 2020-10-30 06:28 | NUR ---
MS RN NOTES PATIENT IS ASLEEP AT THIS TIME RESTING AT SEMI SPENCE'S POSITION. A/O X 2-3. ABLE TO MAKE NEEDS KNOWN WITH EPISODES OF CONFUSION AND YELLING OUT ON AND OFF NOTED. ON ROOM AIR, TOLERATING WELL WITH NO SOB NOTED AT THIS TIME PHAM MIDLINE INTACT, PATENT AND FLUSHES WELL. NGT IN PLACE TO LEFT NARE, FEEDING OF JEVITY 1.2 AT 45 ML/HR IN PROGRESS AND TOLERATING WELL. ASPIRATION PRECAUTIONS MAINTAINED. RIGHT SOFT RESTRAINTS IN PLACE. FREEMAN IN PLACE DRAINING CLEAR YELLOW URINE VIA GRAVITY. PATIENT HAS TWO PIGTAIL DRAINAGE ON LOWER RIGHT SIDE OF BACK, ONE DRAINS RED TINGED DRAINAGE AND THE OTHER DRAINS YELLOW THIN COLORED DRAINAGE. PT TURNED AND REPOSITIONED Q 2HRS AND PRN FOR COMFORT. ALL NEEDS AND CARE ATTENDED WELL. SAFETY MEASURES IN PLACE: BED IN LOWEST LOCKED POSITION WITH SIDE RAILS UP X2, CALL LIGHT WITHIN REACH. WILL ENDORSE CAR ETO DAY SHIFT NURSE.
[2020-10-30 06:32] LABS: CALCIUM, SERUM 7.9 mg/dL (8.5-10.1); CREATININE 0.9 mg/dL (0.6-1.3); POTASSIUM 3.8 mmol/L (3.5-5.1)
[2020-10-30 08:00] VITALS: BP 142/87
--- NOTE | 2020-10-30 08:15 | NUR ---
m/s laboratory helper: notes swallow eval done and pt passed per speech therapist with recommendation for mechanical soft diet. dr. murphy notified and made aware with order okay to have oral gratification (mechanical soft diet) and to keep ngt feeding. order acknowledged.
[2020-10-30] MEDS: FAMOTIDINE (20 MG) 20 MG TABLET GT SCH ×2 (08:30→21:01)
[2020-10-30] MEDS: THIAMINE HCL 100 MG TABLET PO SCH (08:30)
[2020-10-30] MEDS: MEROPENEM 1 G in IV NS 0.9% 100 ML IV SCH ×2 (08:43→20:18)
[2020-10-30] MEDS ORDERED: JEVITY 1.2 CAL 1,000 ML BOTTLE GT SCH (09:00)
[2020-10-30] MEDS ORDERED: JEVITY 1.2 CAL 1,000 ML BOTTLE GT PRN (09:00)
[2020-10-30 11:17] LABS: BASOPHILS # (AUTO) 0.1 K/uL (0.0-0.2); BASOPHILS % (AUTO) 1.1 % (0.0-2.0); EOSINOPHILS % (AUTO) 1.6 % (0.0-6.0); HEMATOCRIT 25 % (33-45); HEMOGLOBIN 8.1 g/dL (11.5-14.8); LYMPHOCYTES # (AUTO) 2.4 K/uL (0.8-4.8); LYMPHOCYTES % (AUTO) 23.8 % (20.0-44.0); MEAN CORPUSCULAR HGB CONC 32 g/dl (31.0-36.0); MEAN CORPUSCULAR VOLUME 90 fL (82-100); MONOCYTES # (AUTO) 0.8 K/uL (0.1-1.30); MONOCYTES % (AUTO) 7.9 % (2.0-12.0); NEUTROPHILS # (AUTO) 6.6 K/uL (1.8-8.9); NEUTROPHILS % (AUTO) 65.6 % (43.0-81.0); PLATELET COUNT (AUTO) 472 K/uL (150-450); RED BLOOD CELL COUNT(AUTO) 2.81 MIL/uL (4.0-5.2); WHITE BLOOD COUNT (AUTO) 10.1 K/uL (4.3-11.0)
--- NOTE | 2020-10-30 12:00 | NUR ---
m/s tobacco shaker: notes pt ate 10% for lunch with staff assisting. hob elevated at 90 degree. tolerating ngt feeding with no residual. will continue to monitor.
[2020-10-30 16:00] VITALS: BP_SYST 164; BP_SYST 195; BP_DIAS 119; BP_DIAS 91
--- NOTE | 2020-10-30 16:00 | NUR ---
m/s kiosk sales representative: notes family visiting at this time.
--- NOTE | 2020-10-30 18:16 | NUR ---
m/s election clerk: notes family remains at bedside. kept comfortable. needs attended. no distress noted. tolerating her ngt feeding. hob elevated. will continue to monitor.
--- NOTE | 2020-10-30 19:10 | NUR ---
m/s mobile developer: notes report given to saad (rn) for continuity of care.
[2020-10-30 20:00] VITALS: BP 156/97
[2020-10-30] MEDS: SENNOSIDES 8.6 MG TABLET PO SCH (21:02)
[2020-10-31] MEDS: MORPHINE SULFATE INJ 2 MG/ML DISP.SYRIN IV PRN ×2 (00:08→23:03)
--- NOTE | 2020-10-31 00:08 | NUR ---
MS RN NOTES PRN MORPHINE 1MG GIVEN FOR PAIN 8/10 ON A NUMERIC PAIN SCALE . WILL CONTINUE TO MONITOR.
[2020-10-31] MEDS: LORAZEPAM INJ 2 MG/ML VIAL IV PRN (02:57)
--- NOTE | 2020-10-31 02:59 | NUR ---
MS RN NOTES PT AGITATED SCREAMING REORIENTATION, DISTRACTION PROVIDED BUT PT STILL CONTINUED TO BE AGITATED PRN ATIVAN 0.5MG GIVEN 1.5 MG DISCARDED WILL CONTINUE TO MONITOR.
--- NOTE | 2020-10-31 06:46 | NUR ---
MS RN NOTES PATIENT IS AWAKE AT THIS TIME RESTING AT SEMI SPENCE'S POSITION. A/O X 2. ABLE TO MAKE NEEDS KNOWN WITH EPISODES OF CONFUSION NOTED. ON ROOM AIR, TOLERATING WELL WITH NO SOB NOTED AT THIS TIME PHAM MIDLINE INTACT, PATENT AND FLUSHES WELL. NGT IN PLACE TO LEFT NARE, FEEDING OF JEVITY 1.2 IN PROGRESS AND TOLERATING WELL. ASPIRATION PRECAUTIONS MAINTAINED. RIGHT SOFT RESTRAINTS IN PLACE. FREEMAN IN PLACE DRAINING CLEAR YELLOW URINE VIA GRAVITY. PATIENT HAS TWO PIGTAIL DRAINAGE ON LOWER RIGHT SIDE OF BACK, ONE DRAINS RED TINGED DRAINAGE AND THE OTHER DRAINS YELLOW THIN COLORED DRAINAGE.. ALL NEEDS AND CARE ATTENDED WELL. SAFETY MEASURES IN PLACE: BED IN LOWEST LOCKED POSITION WITH SIDE RAILS UP X2, HOB ELEVATED FOR ASPIRATION PRECAUTIONS. CALL LIGHT WITHIN REACH. WILL ENDORSE CARE TO DAY SHIFT NURSE.
--- NOTE | 2020-10-31 07:23 | NUR ---
MSRN OPENING NOTES PATIENT IS ASLEEP AT THIS TIME RESTING AT SEMI SPENCE'S POSITION. A/O X 2. ABLE TO MAKE NEEDS KNOWN WITH EPISODES OF CONFUSION NOTED. ON ROOM AIR, TOLERATING WELL WITH NO SOB NOTED AT THIS TIME PHAM MIDLINE INTACT, PATENT AND FLUSHES WELL. NGT IN PLACE TO LEFT NARE, FEEDING OF JEVITY 1.2 IN PROGRESS AND TOLERATING WELL. ASPIRATION PRECAUTIONS MAINTAINED. RIGHT SOFT RESTRAINTS IN PLACE. FREEMAN IN PLACE DRAINING CLEAR YELLOW URINE VIA GRAVITY. PATIENT HAS TWO PIGTAIL DRAINAGE ON LOWER RIGHT SIDE OF BACK, ONE DRAINS RED TINGED DRAINAGE AND THE OTHER DRAINS YELLOW THIN COLORED DRAINAGE.. ALL NEEDS AND CARE ATTENDED WELL. SAFETY MEASURES NOTED BED IN LOWEST LOCKED POSITION WITH SIDE RAILS UP X2, HOB ELEVATED FOR ASPIRATION PRECAUTIONS. CALL LIGHT WITHIN REACH AND ANSWERED PROMPTLY.
[2020-10-31 07:25] LABS: CALCIUM, SERUM 8.1 mg/dL (8.5-10.1); CREATININE 0.9 mg/dL (0.6-1.3); POTASSIUM 3.9 mmol/L (3.5-5.1)
[2020-10-31 08:00] VITALS: BP 165/96
[2020-10-31] MEDS: MEROPENEM 1 G in IV NS 0.9% 100 ML IV SCH ×2 (09:49→21:48)
[2020-10-31] MEDS: THIAMINE HCL 100 MG TABLET PO SCH (09:49)
[2020-10-31] MEDS: FAMOTIDINE (20 MG) 20 MG TABLET GT SCH ×2 (09:49→21:48)
[2020-10-31 16:00] VITALS: BP 153/97
[2020-10-31 20:00] VITALS: BP 141/87
--- NOTE | 2020-10-31 20:00 | NUR ---
MS RN OPENING NOTES: RECEIVED PATIENT AWAKE IN BED, BED IN LOW POSITION, CALL LIGHTS WITHIN REACH, NO COMPLAIN OF PAIN AND DISCOMFORT AT THIS TIME, ON PUREED DIET WITH NGT TUBE IN PLACE TO CLARIFY IF NG TUUBE TO DISCONTINUE, WITH [place] MIDLINE, PATIENT KEPT CLEAN AND DRY,ALL NEEDS MET, WILL CONTINUE TO MONITOR.
--- NOTE | 2020-10-31 21:15 | NUR ---
MS RN NOTES; PATIENT REFUSED MEDICATION AT 2100 OFFERED SEVERAL TIMES EXPLAIN THE RISK AND BENEFITS BUT KEPT ON REFUSING,
[2020-10-31] MEDS: SENNOSIDES 8.6 MG TABLET PO SCH (21:48)
[2020-11-01] MEDS: LORAZEPAM INJ 2 MG/ML VIAL IV PRN (01:19)
[2020-11-01] MEDS: MORPHINE SULFATE INJ 2 MG/ML DISP.SYRIN IV PRN ×2 (03:27→21:41)
[2020-11-01 06:15] LABS: CALCIUM, SERUM 8.2 mg/dL (8.5-10.1); CREATININE 0.9 mg/dL (0.6-1.3); MAGNESIUM 1.6 mg/dL (1.8-2.4); POTASSIUM 3.8 mmol/L (3.5-5.1)
[2020-11-01 06:27] LABS: BASOPHILS # (AUTO) 0.1 K/uL (0.0-0.2); BASOPHILS % (AUTO) 1.2 % (0.0-2.0); EOSINOPHILS % (AUTO) 1.5 % (0.0-6.0); HEMATOCRIT 23 % (33-45); HEMOGLOBIN 7.6 g/dL (11.5-14.8); LYMPHOCYTES # (AUTO) 3.5 K/uL (0.8-4.8); LYMPHOCYTES % (AUTO) 30.6 % (20.0-44.0); MEAN CORPUSCULAR HGB CONC 33 g/dl (31.0-36.0); MEAN CORPUSCULAR VOLUME 88 fL (82-100); MONOCYTES # (AUTO) 0.9 K/uL (0.1-1.30); NEUTROPHILS # (AUTO) 6.7 K/uL (1.8-8.9); NEUTROPHILS % (AUTO) 58.7 % (43.0-81.0); PLATELET COUNT (AUTO) 551 K/uL (150-450); RED BLOOD CELL COUNT(AUTO) 2.62 MIL/uL (4.0-5.2); WHITE BLOOD COUNT (AUTO) 11.4 K/uL (4.3-11.0)
--- NOTE | 2020-11-01 07:30 | NUR ---
MS RN OPENING NOTES RECEIVED PATIENT IN BED, AWAKE. PATIENT IS A/O X2. PATIENT IS BREATHING EVENLY AND NONLABORED ON ROOM AIR. NO SIGNS OF DISTRESS NOTED. PATIENT DOES NOT COMPLAIN OF PAIN AT THIS TIME. PATIENT HAS NGT, BUT ON PUREE DIET, NOTIFIED WITH NEW ORDER TO DC NASOGASTRIC TUBE. PATIENT HAS IV ACCESS ON PHAM MIDLINE PATENT AND INTACT. PATIENT HAS FREEMAN CATHETER DRAINING CLEAR YELLOW URINE. SAFETY MEASURES ARE IN PLACE BED LOW LOCKED CALL LIGHT WITHIN REACH- EXPLAINED THE NEED TO USE CALL LIGHT. WILL CONTINUE TO MONITOR
--- NOTE | 2020-11-01 07:36 | NUR ---
RN CLOSING NOTES: PATIENT SLEEP IN BED COMFORTABLY, BED IN LOW POSITION, CALL LIGHTS WITHIN RREACH, PATIENT HAS AN EPISODE OF SCREAMING TURNING POSITION DONE, MEDICATION FOR PAIN GIVEN ON FREEMAN CATHETER AND DRAINAGE ON BILATERAL SIDE ON RESTRAIN CURRENTLY RELEASE, BED IN LOW POSITION, ALL,NEEDS MET, ENDORSE TO INCOMING SHIFT.
[2020-11-01 08:00] VITALS: BP 127/85
--- NOTE | 2020-11-01 08:00 | NUR ---
RN NOTE REMOVED NGT PATIENT TOLERATED WELL WILL ENCOURAGE ORAL INTAKE
[2020-11-01] MEDS: FAMOTIDINE (20 MG) 20 MG TABLET GT SCH ×2 (08:26→21:40)
[2020-11-01] MEDS: MEROPENEM 1 G in IV NS 0.9% 100 ML IV SCH (08:26)
[2020-11-01] MEDS: THIAMINE HCL 100 MG TABLET PO SCH (08:26)
[2020-11-01] MEDS ORDERED: Magnesium 1GM/D5W 100ML PREMIX 100 ML IV SCH (09:00)
[2020-11-01] MEDS: Magnesium 1GM/D5W 100ML PREMIX 100 ML IV SCH ×2 (11:08→12:07)
[2020-11-01] MEDS ORDERED: LACT-246 PO (12:54)
[2020-11-01] MEDS ORDERED: Levofloxacin (250MG) PO (12:54)
[2020-11-01] MEDS ORDERED: METR500T PO (12:54)
[2020-11-01] MEDS: METRONIDAZOLE 500 MG TABLET PO SCH ×2 (13:11→21:40)
[2020-11-01] MEDS: LEVOFLOXACIN (250MG) 250 MG TABLET PO SCH (13:11)
[2020-11-01] MEDS: ENSURE ENLIVE 237 ML LIQUID (VANILLA) PO SCH ×2 (13:12→16:14)
[2020-11-01 16:00] VITALS: BP 133/80
--- NOTE | 2020-11-01 18:36 | NUR ---
MS RN CLOSING NOTES PATIENT IN BED, AWAKE. PATIENT IS A/O X2. PATIENT IS BREATHING EVENLY AND NONLABORED ON ROOM AIR. NO SIGNS OF DISTRESS NOTED. PATIENT DOES NOT COMPLAIN OF PAIN AT THIS TIME. NGT WAS REMOVED, PATIENT TOLERATED WELL. PATIENT HAS IV ACCESS ON PHAM MIDLINE #18 PATENT AND INTACT. PATIENT HAS FREEMAN CATHETER DRAINING CLEAR YELLOW URINE. ALL MEDICATIONS GIVEN ORDERED. SAFETY MEASURES ARE IN PLACE BED LOW LOCKED CALL LIGHT WITHIN REACH- EXPLAINED THE NEED TO USE CALL LIGHT. WILL ENDORSE TO ONCOMING SHIFT
[2020-11-01 20:00] VITALS: BP 130/73
[2020-11-01] MEDS: SENNOSIDES 8.6 MG TABLET PO SCH (21:40)
[2020-11-02] MEDS: LORAZEPAM INJ 2 MG/ML VIAL IV PRN ×2 (02:00→08:18)
[2020-11-02] MEDS: METRONIDAZOLE 500 MG TABLET PO SCH ×2 (05:08→12:07)
--- NOTE | 2020-11-02 06:24 | NUR ---
MS RN NOTES AWAKE & RESPONSIVE. NOT IN ANY DISTRESS. NO SOB NOTED. DENIES ANY PAIN OR DISCOMFORT AT THIS TIME. AM CARE DONE. MONITORED ACCORDINGLY. CALL LIGHT WITHIN REACH. BED IN LOWEST POSITION. SR UP X 3 WITH BED ALARM ON FOR SAFETY. WILL ENDORSE TO NEXT SHIFT.
[2020-11-02 07:21] LABS: CALCIUM, SERUM 8.1 mg/dL (8.5-10.1); CREATININE 0.9 mg/dL (0.6-1.3); MAGNESIUM 1.9 mg/dL (1.8-2.4); POTASSIUM 3.9 mmol/L (3.5-5.1)
[2020-11-02 08:00] VITALS: BP 141/91
--- NOTE | 2020-11-02 08:00 | NUR ---
MS RN OPENING NOTES RECEIVED PATIENT IN BED, AWAKE. PATIENT IS A/O X2 BUT GETS CONFUSED AND IS FORGETFUL. STABLE ON ROOM AIR - NO SOB, NO DISTRESS/DISCOMFORT NOTED. IV ACCESS TO LEFT UPPER ARM - MIDLINE - S/L. FREEMAN CATHETER NOTED - DRAINING CLEAR YELLOW URINE. DRAINS FROM ABDOMEN NOTED - DRAINING YELLOW/[place]A FLUID. SAFETY MEASURES ARE IN PLACE. CALL LIGHT WITHIN REACH. WILL CONTINUE TO MONITOR.
[2020-11-02] MEDS: ENSURE ENLIVE 237 ML LIQUID (VANILLA) PO SCH ×3 (08:18→16:25)
[2020-11-02] MEDS: FAMOTIDINE (20 MG) 20 MG TABLET GT SCH (08:18)
[2020-11-02] MEDS: MORPHINE SULFATE INJ 2 MG/ML DISP.SYRIN IV PRN ×2 (08:18→13:47)
[2020-11-02] MEDS: THIAMINE HCL 100 MG TABLET PO SCH (08:18)
[2020-11-02] MEDS ORDERED: CT SWABBABLE VALVE TRANS SET 1 EA INFUS.SET MC ONE (11:13)
[2020-11-02] MEDS ORDERED: IOHEXOL-300 100 ML VIAL IV ONE (11:13)
[2020-11-02] MEDS ORDERED: IV NS 0.9% 250 ML IV ONE (11:14)
[2020-11-02] MEDS: LEVOFLOXACIN (250MG) 250 MG TABLET PO SCH (12:07)
[2020-11-02 16:00] VITALS: BP 130/77
--- NOTE | 2020-11-02 17:12 | NUR ---
MS IRRIGATION EQUIPMENT REMOVER NOTE PATIENT DISCHARGED VIA AMBULANCE @ 1708. PATIENT STABLE, A/O X2, FORGETFUL. STABLE ON ROOM AIR. NO SOB, NO DISTRESS/DISCOMFORT NOTED. ALL EXITCARE AND EDUCATION GONE OVER WITH PATIENT'S COUSIN AT BEDSIDE. PETE REQUESTED TO BE LEFT IN BY RECEIVING FACILITY. DISCHARGE PAPERWORK GIVEN TO EMT'S. REPORT GIVEN TO ADMISSIONS NURSE AT [facility]. MIDLINE REMOVED, WRISTBAND REMOVED. PATIENT ACCOMPANIED TO LOBBY BY EMT'S.
== END 2020-11-02 17:10 | DRG 871 ==
LOC: ER 16:13 → TELE1 21:31 → MEDSG1 10-23 08:54 → MED 10-25 22:25
PROVIDERS: ADMIT Legal Medicine; ATTEND Legal Medicine
PROC: 30233N1 Transfusion of Nonautologous Red Blood Cells into Peripheral Vein, Percutaneous Approach (ICD-10-PCS; 2020-10-20)
PROC: 0W9H3ZZ Drainage of Retroperitoneum, Percutaneous Approach (ICD-10-PCS; principal; 2020-10-24)
PROC: 05HA33Z Insertion of Infusion Device into Left Brachial Vein, Percutaneous Approach (ICD-10-PCS; 2020-10-26)
PROC: 05HC33Z Insertion of Infusion Device into Left Basilic Vein, Percutaneous Approach (ICD-10-PCS; 2020-11-01)
DX: A41.9 Sepsis, unspecified organism (principal); E43 Unspecified severe protein-calorie malnutrition; K65.1 Peritoneal abscess; N17.0 Acute kidney failure with tubular necrosis; E87.2 Acidosis; R64 Cachexia; J98.11 Atelectasis; G93.40 Encephalopathy, unspecified; R18.8 Other ascites; K57.92 Diverticulitis of intestine, part unspecified, without perforation or abscess without bleeding; D64.9 Anemia, unspecified; E87.6 Hypokalemia; E83.42 Hypomagnesemia; K21.9 Gastro-esophageal reflux disease without esophagitis; R65.20 Severe sepsis without septic shock; R13.10 Dysphagia, unspecified; E11.9 Type 2 diabetes mellitus without complications; N28.81 Hypertrophy of kidney; Z20.822 Contact with and (suspected) exposure to COVID-19; D50.9 Iron deficiency anemia, unspecified; E78.5 Hyperlipidemia, unspecified; R62.7 Adult failure to thrive; K80.20 Calculus of gallbladder without cholecystitis without obstruction; K82.8 Other specified diseases of gallbladder; J84.10 Pulmonary fibrosis, unspecified; Z90.49 Acquired absence of other specified parts of digestive tract; N26.1 Atrophy of kidney (terminal); N99.528 Other complication of incontinent external stoma of urinary tract; M62.50 Muscle wasting and atrophy, not elsewhere classified, unspecified site
CPT/HCPCS: 36410; 36415; 70450-TC; 71045-TC; 74178; 75989; 75989-TC; 80048-TC; 80053-TC; 80076-TC; 80202-TC; 81001; 82436-TC; 83605-TC; 83735-TC; 84100-TC; 84133-TC; 84300-TC; 84484-TC; 85025-TC; 85610-TC; 85730-TC; 86850-TC; 87040-TC; 87070-TC; 87081-TC; 87086-TC; 87186-TC; 92526; 92611-TC; A4216; A9563; C9113; C9803; G0378; J0692; J1450; J1650; J2060; J2185; J2250; J2270; J2310; J2543; J3010; J3370; J3475; J3480; J3490; J7030; J7040; J7042; J7050; J7060; P9016; Q9967; U0003